=== PATIENT | male | born 1970 | race Caucasian/White ===

== ENCOUNTER → 2017-11-01 | Outpatient (REF) ==
--- NOTE | 2017-11-01 15:41 | Diagnostic Imaging Report ---
EXAMINATION: Right fingers. INDICATION: Injury. FINDINGS: An AP view of the hand and two views of the thumb were obtained. There are no prior studies available for comparison. There is no fracture, dislocation, or acute bony abnormality evident. There is a 9 mm bony excrescence along the lateral aspect of the head of the first metacarpal. This may be a sequela of prior trauma. This does not have the typical appearance of an osteochondroma. The soft tissues are unremarkable. There is no radiopaque foreign body identified. IMPRESSION: There is no evidence for an acute bony abnormality. Dictated by: Dictated on workstation # [id number]
== END | disposition home or self-care (01) ==
LOC: OCC 14:19
PROVIDERS: ATTEND Nurse Practitioner Family
CPT/HCPCS: 73140

== ENCOUNTER 2018-04-11 22:22 | Observation (INO) | payer OTHER ==
[~2018-04-11] VITALS: Ht 190.5 cm; Wt 94.3 kg
--- OUTSIDE RECORDS SUMMARY | 2018-04-11 22:27 | XMS REPORT ---
Author Author KEYSHA LUCAS [facility] Address [address] [place] [address] Care Team Providers Care Social Service Assistant Name Role Phone KEYSHA LUCAS Unavailable PROBLEMS Type Condition ICD9-CM Code [id number] Code Onset Dates Condition Status SNOMED Code Problem Type 2 diabetes mellitus without complications E11.9 Active 723811965 Problem intermediate current use of insulin Z79.4 Active 035924671 Problem Mixed hyperlipidemia E78.2 Active 750404100 Problem Essential hypertension I10 Active 17741539 Problem Encounter to establish care Z76.89 Active 215724714 ALLERGIES No Information ENCOUNTERS Encounter Location Date Diagnosis [facility] [id number] [place] [phone] Oct, Mixed hyperlipidemia E78.2 [facility] [id number] [place] [phone] Oct, [facility] [id number] [place] [phone] Oct, Type 2 diabetes mellitus without complications E11.9 ; Encounter to establish care Z76.89 ; intermediate accountant current use of insulin Z79.4 and Essential hypertension I10 IMMUNIZATIONS No Known Immunizations SOCIAL HISTORY Never Assessed REASON FOR VISIT med sent/ lab deferred PLAN OF CARE VITAL SIGNS MEDICATIONS Medication Instructions Dosage Frequency Start Date End Date Duration Status Lipitor 40 mg Orally Once a day 1 tablet 24h Oct, 30 day(s) Active RESULTS No Results PROCEDURES No Known procedures INSTRUCTIONS MEDICATIONS ADMINISTERED No Known Medications MEDICAL (GENERAL) HISTORY Type Description Date Medical History Type 2 Diabetes Surgical History Knee surgery Surgical History Shoulder surgery Surgical History Gallbladder removed Surgical History Foot has been operated on Hospitalization History Smashed thumb and went to 10/2017
--- OUTSIDE RECORDS SUMMARY | 2018-04-11 22:27 | XMS REPORT ---
Author Author KEYSHA LUCAS [facility] Address [address] [place] [address] Care Team Providers Care Burr Grinder Name Role Phone KEYSHA LUCAS Unavailable PROBLEMS Type Condition ICD9-CM Code [id number] Code Onset Dates Condition Status SNOMED Code Problem Type 2 diabetes mellitus without complications E11.9 Active 483049456 Problem FDC current use of insulin Z79.4 Active 199603358 Problem Mixed hyperlipidemia E78.2 Active 635906206 Problem Essential hypertension I10 Active 42181329 Problem Encounter to establish care Z76.89 Active 344392552 ALLERGIES No Information ENCOUNTERS Encounter Location Date Diagnosis [facility] [id number] [place] [phone] Oct, Mixed hyperlipidemia E78.2 [facility] [id number] [place] [phone] Oct, [facility] [id number] [place] [phone] Oct, Type 2 diabetes mellitus without complications E11.9 ; Encounter to establish care Z76.89 ; intermediate manager current use of insulin Z79.4 and Essential hypertension I10 IMMUNIZATIONS No Known Immunizations SOCIAL HISTORY Never Assessed REASON FOR VISIT PLAN OF CARE VITAL SIGNS MEDICATIONS Unknown Medications RESULTS No Results PROCEDURES No Known procedures INSTRUCTIONS MEDICATIONS ADMINISTERED No Known Medications MEDICAL (GENERAL) HISTORY Type Description Date Medical History Type 2 Diabetes Surgical History Knee surgery Surgical History Shoulder surgery Surgical History Gallbladder removed Surgical History Foot has been operated on Hospitalization History Smashed thumb and went to 10/2017
--- OUTSIDE RECORDS SUMMARY | 2018-04-11 22:27 | XMS REPORT | Continuity of Care Document ---
Author Author [facility] Address [address] [place] [address] Care Team Providers Care Steam And Power Superintendent Name Role Phone Tavon Pardo Unavailable Insurance Providers Payer Name Policy Number Subscriber Name Relationship Blue Cross [id number] GIORGIO NATHAN PATIENT/SELF Advance Directives Directive Response Recorded Date/Time Advance Directive Information: AD BROCHURE GIVEN TO PT 07/11/17 0:31am Problems Active Medical Problems Problem Onset Date Recorded Date Status Corneal abrasion, left Unknown 03/02/14 Active Sinus infection Unknown 03/13/17 Active Medications Current Home Medications Medication Dose Units Route Directions Days/Qty Instructions Start Date Cefadroxil Hydrate (Cefadroxil) 500 MG CAPSULE 500 MG BY MOUTH TWICE DAILY TAKE THIS MEDICATION UNTIL COMPLETELY GONE. Insulin Glargine 100 Units/Ml (Lantus) 100 UNIT/1 ML INJ 12 UNITS SUBCUTANEO DAILY Lisinopril (Prinivil) 10 MG TABLET 10 MG BY MOUTH DAILY Metformin (Glucophage) 500 MG TABLET 500 MG BY MOUTH TWICE DAILY Ondansetron (Zofran Odt) 4 MG TAB.RAPDIS 4 MG BY MOUTH EVERY 6 HOURS NEEDED PRN NAUSEA AND VOMITING Oxycodone 5 MG W/Actm 325 MG (Percocet 5/325) 1 EA UD.TAB 1 TAB BY MOUTH EVERY 4 HOURS NEEDED PRN PAIN DO NOT TAKE ACETAMINOPHEN WHILE TAKING THIS MEDICATION. Sitagliptin Phosphate (Januvia) 50 MG TAB 50 MG BY MOUTH DAILY Past Home Medications Medication Directions Ordered Status Amoxicillin* (Amoxil*) 500 Mg Cap Cap, 1 Cap By Mouth FOUR TIMES DAILY Discontinued Bisoprolol Fumarate/Hctz (Ziac 2.5-6.25 Mg Tablet) 1 Each Tablet Tablet, 1 Tab By Mouth DAILY Unknown Discontinued Naproxen Sodium (Aleve) 220 Mg Tab Tab, 220 Mg By Mouth TWICE DAILY NEEDED PRN PAIN Unknown Discontinued Sitagliptin Phosphate (Januvia) 100 Mg Tablet Tablet, 100 Mg By Mouth DAILY Unknown Discontinued Social History Problem Response Recorded Date Drug Use none 03/02/14 Alcohol Use none 03/02/14 Hospital Discharge Instructions No hospital discharge instructions. Plan of Care No plan of care. Functional Status No functional status results. Allergies, Adverse Reactions, Alerts Allergen Type Severity Reaction Status Last Updated No Known Allergies Allergy Unknown Active 03/13/17 Immunizations Name Date Given Type *Flu Shot: None Historical *Tetanus Shot: Up To Date Historical Vital Signs Vital Reading Collection Date/Time Result Blood Pressure 07/11/17 3:03pm 140/85 Patient Temperature 07/11/17 2:00pm 97.4 Respiratory Rate 07/11/17 3:03pm 16 Pulse Rate 07/11/17 3:03pm 60 Bedside Pulse Oximetry 07/11/17 3:03pm 100 Height 07/11/17 9:30am 193.04 cm Height 07/11/17 9:30am 6 ft 4 in Weight 07/11/17 9:30am 104.78 kg Weight 07/11/17 9:30am 231 lb Body Mass Index 07/11/17 9:30am 28.1 Results No known relevant diagnostic tests, laboratory data and/or discharge summary. Procedures No Known History of Procedures. Encounters Encounter Location Arrival/Admit Date Discharge/Depart Date Attending Provider Departed Surgical Day Care [facility] 07/11/17 0:31am 07/11/17 3 :20pm Michael Watts DO Registered Clinical [facility] 06/14/17 1:18am Tavon Pardo Encounter Diagnosis Onset Date Corneal abrasion, left Sinus infection
--- OUTSIDE RECORDS SUMMARY | 2018-04-11 22:27 | XMS REPORT | Continuity of Care Document ---
Author Author [facility] Address [address] [place] [address] Care Team Providers Care Asphalt Tile Floor Layer Name Role Phone Tavon Pardo Unavailable Insurance Providers Payer Name Policy Number Subscriber Name Relationship Blue Cross [id number] GIORGIO NATHAN PATIENT/SELF Advance Directives Directive Response Recorded Date/Time Advance Directive Information: AD BROCHURE GIVEN TO PT 01/28/17 0:14am Problems No problem information available. Medications Current Home Medications Medication Dose Units Route Directions Days/Qty Instructions Start Date Lisinopril 2.5 MG TABLET 2.5 MG PO DAILY Social History Problem Response Recorded Date Drug Use none 03/02/14 Alcohol Use none 03/02/14 Hospital Discharge Instructions No hospital discharge instructions. Plan of Care No plan of care. Functional Status No functional status results. Allergies, Adverse Reactions, Alerts Allergen Type Severity Reaction Status Last Updated No Known Allergies Allergy Unknown Active 05/05/13 Immunizations Name Date Given Type *Flu Shot: None Historical *Tetanus Shot: Less than 10 Years Historical Vital Signs Vital Reading Collection Date/Time Result Blood Pressure 01/12/17 1:44pm 133/99 Height 01/12/17 1:13pm 193.04 cm Height 01/12/17 1:13pm 6 ft 4 in Weight 01/12/17 1:44pm 102.058 kg Weight 01/12/17 1:44pm 225 lb 5 oz Body Mass Index 01/12/17 1:44pm 27.4 Results No known relevant diagnostic tests, laboratory data and/or discharge summary. Procedures No Known History of Procedures. Encounters Encounter Location Arrival/Admit Date Discharge/Depart Date Attending Provider Registered Clinical [facility] 01/24/17 12:27pm Sadiq Moreno Discharged Recurring [facility] 01/05/17 12:43pm 01/27/17 Tavon Pardo
--- OUTSIDE RECORDS SUMMARY | 2018-04-11 22:27 | XMS REPORT | Continuity of Care Document ---
Author Author [facility] Address [address] [place] [address] Care Team Providers Care Tongue And Groove Machine Operator Name Role Phone Tavon Pardo Unavailable Insurance Providers Payer Name Policy Number Subscriber Name Relationship Tab Puente [id number] GIORGIO NATHAN PATIENT/SELF Advance Directives Directive Response Recorded Date/Time Advance Directive Information: AD BROCHURE GIVEN TO PT 03/13/17 5:20pm Chief Complaint and Reason for Visit Reason for Visit SHORTNESS OF BREATH Problems Active Medical Problems Problem Onset Date Recorded Date Status Corneal abrasion, left Unknown 03/02/14 Active Sinus infection Unknown 03/13/17 Active Medications Current Home Medications Medication Dose Units Route Directions Days/Qty Instructions Start Date Amoxicillin* (Amoxil*) 500 MG CAP 1 CAP BY MOUTH FOUR TIMES DAILY 03/13/17 Bisoprolol Fumarate/Hctz (Ziac 2.5-6.25 MG Tablet) 1 EACH TABLET 1 TAB BY MOUTH DAILY Metformin (Glucophage) 500 MG TABLET 500 MG BY MOUTH TWICE DAILY Naproxen Sodium (Aleve) 220 MG TAB 220 MG BY MOUTH TWICE DAILY NEEDED PRN PAIN Sitagliptin Phosphate (Januvia) 100 MG TABLET 100 MG BY MOUTH DAILY Social History Problem Response Recorded Date Drug Use none 03/02/14 Alcohol Use none 03/02/14 Hospital Discharge Instructions No hospital discharge instructions. Plan of Care Discharge Date 03/13/17 Disposition HOME/SELF CARE Condition at Discharge Improved Instructions/Education Provided Sinusitis (ED) Prescriptions See Medications Section Referrals Tavon Pardo - Additional Instructions/Education The CT of the brain does show sinus disease in the ethmoid sinuses (which are deep in the head) and both the left and right maxillary sinuses. For this, take amoxicillin, 500mg, one tablet four times a day for the next five days. Rest and drink plenty of fluids. Take ibuprofen, 200mg, two tablets every 8 hours as needed. Follow up with Dr. Pardo in the next week. Please return to the emergency room for any concern, such as persistent nausea and vomiting, fever of 102.5 30 minutes after taking ibuprofen, headache not resolved, or for any other concern. Care Plan and Goals Problem: Headache Goal: Relief of headache. Plan: Refer to patient instructions provided. Functional Status No functional status results. Allergies, Adverse Reactions, Alerts Allergen Type Severity Reaction Status Last Updated No Known Allergies Allergy Unknown Active 03/13/17 Immunizations Name Date Given Type *Flu Shot: None Historical *Tetanus Shot: Less than 10 Years Historical Vital Signs Vital Reading Collection Date/Time Result Blood Pressure 03/13/17 5:44pm 142/98 Blood Pressure Source 03/13/17 7:44pm Brachial Patient Temperature 03/13/17 5:44pm 97.3 Temperature Source 03/13/17 5:44pm Oral Respiratory Rate 03/13/17 5:44pm 20 Pulse Rate 03/13/17 5:44pm 68 Bedside Pulse Oximetry 03/13/17 5:44pm 93 Height 03/13/17 5:44pm 6 ft 3 in Weight 03/13/17 5:44pm 220 lb Body Mass Index 03/13/17 5:44pm 27.5 Height 01/12/17 1:13pm 193.04 cm Weight 01/12/17 1:44pm 102.058 kg Results [address] [address] ED PHYSICIAN DOCUMENTATION Patient Name: GIORGIO NATHAN : 68 Unit #: [id number] Patient's Service Date: 03/13/17 ED Physician: Julian Payne MD Primary Physician: Char,Tavon M History of Present Illness General Chief Complaint altered mental Stated Complaint SHORTNESS OF BREATH Time Seen by Provider 1721 Source patient, roommate Exam Limitations clinical condition History of Present Illness Initial Comments Pt had relatively sudden onset of a SANTOS this afternoon, but unsure of exact time d/t pt's confusion. He has altered mental status and significant diaphroesis. He was sandor in by a roommate who works nights and woke up to find him in essentially his current condition. Pt is T2DM, but other history is unknown. Location generalized, head Context present at rest Quality achy Severity moderate Duration hours (2-4?) Timing one episode, worsening Modifying Factors nothing improves, nothing worsens Allergies Coded Allergies: No Known Allergies (03/13/17) (Sudhakar Saldana (ED)) History of Present Illness Home Medications Reported Medications Metformin (Glucophage) 500 MG BY MOUTH BID Bisoprolol Fumarate/Hctz (Ziac 2.5-6.25 MG Tablet) 1 TAB BY MOUTH DAILY Sitagliptin Phosphate (Januvia) 100 MG BY MOUTH DAILY Naproxen Sodium (Aleve) 220 MG BY MOUTH BID PRN PRN PAIN (Julian Payne MD) Review of Systems Review of Systems Was ROS Completed? Yes Limited By clinical condition Constitutional Reports diaphoresis, Denies fever Eyes Denies redness, Denies drainage ENT Denies throat pain Respiratory Denies cough, Denies short of breath, Denies wheezing Cardiovascular Denies chest pain Gastrointestinal Reports vomiting (per roommate), Denies diarrhea Musculoskeletal Denies neck pain Neurological Reports headache (Sudhakar Saldana (ED)) Past Medical History Past Medical History Medical History diabetes (Type 2) Social History Smoker Never smoker (Sudhakar Saldana (ED)) Physical Exam Physical Exam Exam Limitations clinical condition Nursing Assessment Reviewed Yes Initial Vital Signs Vital Signs Result Date Time Pulse Ox 93 03/13 174 B/P 142/98 03/13 174 Temp 97.3 03/13 174 Pulse 68 03/13 1744 Resp 20 03/13 174 Constitutional well developed, diaphoretic Eyes bilateral eyes PERRL, bilateral eyes other (nystagmus w/ lateral movement) Ear, Nose, Throat hearing grossly normal, normal TM (R), normal TM (L), nasal exam WNL, oral exam WNL Neck normal inspection, non-tender, supple, full range of motion Respiratory no respiratory distress, normal breath sounds Cardiovascular regular rate/rhythm Gastrointestinal soft, non tender Musculoskeletal normal strength Skin normal color, diaphoresis Neurological Pt is somewhat uncooperative w/ exam. Difficult to obtain complete exam. Psychiatric alert, appears disoriented (Sudhakar Saldana (ED)) Results Results Labs Laboratory Tests 03/13 03/13 03/13 03/13 03/13 1729 1729 1729 1742 1756 Chemistry Sodium (135 - 150 mmol/L) 140 Potassium (3.4 - 5.2 mmol/L) 3.7 Chloride (100 - 112 mmol/L) 103 Carbon Dioxide (18 - 30 mEq/L) 24 Anion Gap (8 - 16 mmol/L) 13 BUN (5 - 21 mg/dL) 21 Creatinine (0.60 - 1.30 mg/dL) 1.15 GFR Calculation (> 60 mL/Min) > 60 Glucose (70 - 99 mg/dL) 232 H Lactic Acid (0.4 - 2.0 mmol/L) 2.3 *H Calcium (8.6 - 10.5 mg/dL) 10.1 Total Bilirubin (0.0 - 1.2 mg/dL) 0.4 AST (6 - 37 U/L) 15.0 ALT (12 - 78 U/L) 23.0 Alkaline Phosphatase (50 - 136 U/L) 95.0 Troponin I (0.00 - 0.05 ng/mL) < 0.01 B-Natriuretic Peptide (<100 pg/mL) < 10 Total Protein (6.4 - 8.2 g/dL) 8.4 H Albumin (3.3 - 4.5 g/dL) 3.9 Albumin/Globulin Ratio (0.7 - 2.0) 0.9 Procalcitonin (0.0 - 0.10 ng/ml) < 0.05 L TSH (0.35 - 4.94 uIU/mL) 0.95 Coagulation PT (11.9 - 14.4 Seconds) 11.3 L INR (0.87 - 1.13) 0.83 L APTT (23.9 - 34.0 Seconds) 23.4 L D-Dimer (< 0.50 ug/ml) < 0.27 Hematology WBC (4.5 - 11.0 10^3/uL) 13.2 H RBC (4.70 - 6.00 10^6/uL) 5.08 Hgb (13.5 - 17.5 g/dl) 15.3 Hct (41 - 53 %) 45.0 MCV (80 - 100 fL) 88.4 MCH (25.0 - 34.0 pg) 30.0 MCHC (31.0 - 36.0 g/dL) 34.0 RDW (11.0 - 15.0 %) 13.8 Plt Count (130 - 400 10^3/uL) 332 MPV (7.0 - 11.0 fL) 8.0 Neutrophils (Manual) (50 - 65 %) 56 Neutrophils # (1.0 - 8.0 #) 7.4 Lymphocytes (Manual) (15 - 45 %) 37 Lymphocytes # (1.0 - 3.0 #) 4.9 H Monocytes (Manual) (0 - 10 %) 7 Monocytes # (0.0 - 1.0 #) 0.9 Eosinophils # (0.0 - 0.4 #) 0.0 Basophils # (0.0 - 0.2 #) 0.0 Toxicology Serum Alcohol (0 mg/dL) 0 03/13 Coagulation D-Dimer Cancelled Toxicology Urine Opiates Screen Pending Urine Methadone Screen Pending Ur Barbiturates Screen Pending Ur Phencyclidine Scrn Pending Ur Amphetamines Screen Pending U Benzodiazepines Scrn Pending U Cocaine Metab Screen Pending U Cannabinoids Screen Pending Urines Urine Color (Yellow) Yellow Urine Appearance (Clear) Clear Urine pH (4.5 - 7.5) 5.0 Ur Specific [place] (1.010 - .025) >=1.030 H Urine Protein (Negative) Negative Urine Ketones (Negative) Trace H Urine Blood (Negative) Negative Urine Nitrate (Negative) Negative Urine Bilirubin (Negative) Negative Urine Urobilinogen (<=1.0) 0.2 Ur Leukocyte Esterase (Negative) Negative Urine Glucose (Negative) 3+ H Microbiology Microbiology Date/Time Procedure - Status Source Growth 03/13 1759 Blood Culture - RECD Blood Progress Note Medications Medications Medications Given in the ED Sig/Timothy Start time Last Medication Dose Route Stop Time Status Admin Fentanyl Citrate See Dose PRN PRN 03/13 1832 CKD 03/13 (FENTANYL) Insts (1) IV 1835 Ketorolac 30 MG ONE ONE 03/13 1923 DC Tromethamine IV 03/13 1924 (TORADOL) Ondansetron HCl 4 MG ONE ONE 03/13 1832 DC 03/13 (ZOFRAN) IV 03/13 1833 183 Sodium Chloride 1,000 ML .STK-MED ONE 03/13 1824 DC 03/13 (0.9% Sodium IV 1826 Chloride) Dose Instructions: (1)Fentanyl Citrate (FENTANYL): 25-100 MCG Departure Departure Referrals Tavon Pardo (PCP) (Sudhakar Saldana (ED)) Departure Clinical Impression Primary Impression: Sinus infection Qualifiers: Sinusitis location: ethmoidal Chronicity: acute Recurrence: non- recurrent Qualified Code: J01.20 - Acute ethmoidal sinusitis, unspecified Time of Disposition 2022 Disposition HOME/SELF CARE Condition Improved Tobacco Education Tobacco Non-User Patient Instructions Sinusitis (ED) Additional Instructions The CT of the brain does show sinus disease in the ethmoid sinuses (which are deep in the head) and both the left and right maxillary sinuses. For this, take amoxicillin , 500mg, one tablet four times a day for the next five days. Rest and drink plenty of fluids. Take ibuprofen, 200mg, two tablets every 8 hours as needed. Follow up with Dr. Pardo in the next week. Please return to the emergency room for any concern, such as persistent nausea and vomiting, fever of 102.5 30 minutes after taking ibuprofen, headache not resolved, or for any other concern. Prescriptions Current Visit Scripts Amoxicillin* (Amoxil*) 1 CAP BY MOUTH QID #20 CAP Ref 1 (Julian Payne MD) Julian Payne MD Electronically Signed 03/13/172022 Procedures No Known History of Procedures. Encounters Encounter Location Arrival/Admit Date Discharge/Depart Date Attending Provider Departed Emergency [facility] 03/13/17 5:20pm 03/13/17 8:36pm Julian Payne MD Registered Clinical [facility] 01/24/17 12:27pm Sadiq Moreno Discharged Recurring [facility] 01/05/17 12:43pm 01/27/17 Tavon Pardo Encounter Diagnosis Sinusitis
--- OUTSIDE RECORDS SUMMARY | 2018-04-11 22:27 | XMS REPORT ---
Author Author KEYSHA LUCAS [facility] Address [address] [place] [address] Care Team Providers Care Senior Sustainability Consultant Name Role Phone KEYSHA LUCAS Unavailable PROBLEMS Type Condition ICD9-CM Code ZMD94-ES Code Onset Dates Condition Status SNOMED Code Problem Type 2 diabetes mellitus without complications E11.9 Active 465827635 Problem watermelon inspector current use of insulin Z79.4 Active 562297693 Problem Mixed hyperlipidemia E78.2 Active 162415761 Problem Essential hypertension I10 Active 69928696 Problem Encounter to establish care Z76.89 Active 550376492 ALLERGIES No Known Allergies ENCOUNTERS Encounter Location Date Diagnosis [facility] [address] [phone] Oct, Mixed hyperlipidemia E78.2 [facility] [address] [phone] Oct, [facility] [address] [address] Oct, Type 2 diabetes mellitus without complications E11.9 ; Encounter to establish care Z76.89 ; USP current use of insulin Z79.4 and Essential hypertension I10 IMMUNIZATIONS No Known Immunizations SOCIAL HISTORY Never Assessed REASON FOR VISIT Diabetes--MarlonKS PLAN OF CARE Activity Details Follow Up 3 Months, prn Reason:DM VITAL SIGNS Height 76 in 2017-11-15 Weight 226 lbs 2017-11-15 Temperature 97.9 degrees Fahrenheit 2017-11-15 Heart Rate 70 bpm 2017-11-15 Respiratory Rate 20 2017-11-15 BMI 27.51 kg/m2 2017-11-15 Blood pressure systolic 142 mmHg 2017-11-15 Blood pressure diastolic 100 mmHg 2017-11-15 MEDICATIONS Medication Instructions Dosage Frequency Start Date End Date Duration Status Lisinopril-Hydrochlorothiazide 20-25 MG Orally Once a day 1 tablet 24h Oct, 30 day(s) Active MetFORMIN HCl ER 750 MG Orally twice a day 1 tablet with evening meal 12h Oct, 30 day(s) Active Januvia 100 mg Orally Once a day 1 tablet 24h Oct, 30 day(s) Active Lantus 100 UNIT/ML Subcutaneous at bedtime inject 14 units Oct, 30 days Active RESULTS No Results PROCEDURES Procedure Date Ordered Result Body Site [facility] November 15, 2017 Hemoglobin Test Send Out 0 dollar November 15, 2017 [place], ROUTINE* November 15, 2017 GLYCATED HEMOGLOBIN TEST November 15, 2017 INSTRUCTIONS MEDICATIONS ADMINISTERED No Known Medications MEDICAL (GENERAL) HISTORY Type Description Date Medical History Type 2 Diabetes Surgical History Knee surgery Surgical History Shoulder surgery Surgical History Gallbladder removed Surgical History Foot has been operated on Hospitalization History Smashed thumb and went to 10/2017
--- OUTSIDE RECORDS SUMMARY | 2018-04-11 22:28 | XMS REPORT | Continuity of Care Document ---
Author Author [facility] Address Unknown Phone Unavailable Allergies Active Description Code Type Severity Reaction Onset Reported/Identified Relationship to Patient Clinical Status Yes NO NAME AVAILABLE 97775 DRUG N/ A N/A Yes No Known Drug Allergy NKDA N/ A N/A 07/27/2017 Medications Medication Packaging Start Date Stop Date Route Dosage Sig Lisinopril MG 01/28/2017 01/28/2017 2.5 DAILY Bisoprolol Fumarate/Hctz TAB 201603/13/2017 1 DAILY Metformin MG 03/13/2017 03/13/2017 500 BID Sitagliptin Phosphate MG 201603/13/2017 100 DAILY Amoxicillin* CAP 03/13/2017 03/13/2018 1 QID Naproxen Sodium MG 03/13/2017 03/13/2017 220 BID PRN Cefadroxil 500 MG Oral Capsule 07/26/2017 1 BID Acetaminophen 325 MG / Oxycodone Hydrochloride 5 MG Oral ablet [ Percocet] 07/10/2017 1 Ondansetron 4 MG Oral Tablet [Zofran] 07/10/2017 07/26/2017 1 Sitagliptin Phosphate MG 201607/11/2017 50 DAILY Oxycodone 5 MG W/Actm 325 MG TAB 07/11/2017 1 Q4H PRN Ondansetron MG 07/11/2017 07/11/2017 4 Q6H PRN Metformin MG 07/11/2017 07/11/2017 500 BID Lisinopril MG 07/11/2017 07/11/2017 10 DAILY Insulin Glargine 100 Units/Ml UNITS 07/11/2017 07/11/2017 12 DAILY Cefadroxil Hydrate MG 07/11/2017 07/11/2017 500 BID Problems Date Dx Coded Attending Type Code Diagnosis Diagnosed By 12/28/2016 Papo M79.671 Pain in right foot 01/26/2017 Sadiq Moreno M79.674 Pain in right toe(s) Sadiq Moreno Jennifer 01/30/2017 GeronimoOsmani Papo E11.9 Type 2 diabetes mellitus without complications GeronimoOsmani Sim 03/15/2017 Kerry CASTILLO, P Norman Barros J01.20 Acute ethmoidal sinusitis, unspecified Kerry CASTILLO, P Norman 03/15/2017 Kerry CASTILLO, P Norman Barros R06.02 Shortness of breath Kerry CASTILLO, P Norman 03/15/2017 Kerry CASTILLO, P Norman F R51 Headache Kerry CASTILLO, P Norman 06/16/2017 Geronimo Osmani Barros R60.0 Localized edema GeronimoOsmani anna 06/16/2017 Geronimo Osmani Barros S83.411A Sprain of medial collateral ligament of right knee, initial encounter GeronimoOsmani 06/16/2017 Geronimo Osmani Barros S86.811A Strain of other muscle(s) and tendon(s) at lower leg level, right leg, initial encounter GeronimoOsmani Sim 07/03/2017 Michael Watts M23.91 Unspecified internal derangement of right knee 07/13/2017 Michael Watts DO E11.9 Type 2 diabetes mellitus without complications Michael Watts DO 07/13/2017 Michael Watts DO I10 Essential (primary) hypertension Michael Watts DO 07/13/2017 Michael Watts DO M23.231 Derangement of other medial meniscus due to old tear or injury, right knee Michael Watts DO 07/13/2017 Michael Watts DO M65.861 Other synovitis and tenosynovitis, right lower leg Michael Watts DO 07/26/2017 Michael Watts Z48.89 Encounter for other specified surgical aftercare Procedures Code Description [place] [address] X-RAY EXAM OF FOOT 12/28/2016 8001 NO CHARGE 12/28/2016 16747 OFFICE/OUTPATIENT VISIT, [facility] 07/03/2017 36414 POSTOP FOLLOW-UP VISIT 07/26/2017 Results Test Result Range GLUCOSE, RANDOM - 02/09/16 11:59 GLUCOSE 198 mg/dL 64-110 GLUCOSE, RANDOM - 02/09/16 11:59 GLUCOSE 198 mg/dL 64-110 HEMOGLOBIN - 02/24/16 14:29 HEMOGLOBIN 15.3 g/dL 13.5-17.5 HEMOGLOBIN - 02/24/16 14:29 HEMOGLOBIN 15.3 g/dL 13.5-17.5 CBC WITH AUTO DIFFERENTIAL - 12/19/16 16:56 BASOPHILS RELATIVE PERCENT 0.5 % 0.0-2.5 EOSINOPHILS RELATIVE PERCENT 1.1 % <=5.0 HEMATOCRIT 46.8 % 38.8-50.0 HEMOGLOBIN 17.2 g/dL 13.5-17.5 LYMPHOCYTES RELATIVE PERCENT 18.8 % 22.0-49.0 MEAN CORPUSCULAR HEMOGLOBIN 30.9 pg 26.0-34.0 MEAN CORPUSCULAR HEMOGLOBIN CONC 36.8 g/dL 31.0-37.0 MEAN CORPUSCULAR VOLUME 84.2 fL 81.2-95.1 MONOCYTES RELATIVE PERCENT 6.3 % 2.0-9.0 NEUTROPHILS RELATIVE PERCENT 73.3 % 40.0-75.0 NUCLEATED RED BLOOD CELLS 0 /100 <=0 PLATELET COUNT 321 10E9/L 150-450 RED BLOOD CELL COUNT 5.56 10E12/L 4.32-5.72 RED CELL DISTRIBUTION WIDTH 11.9 % 11.8-15.6 [id number] 9.8 10E9/L 3.5-10.5 2376478 1.84 10E9/L 0.90-2.90 8144780 0.62 10E9/L 0.30-0.90 0650458 0.11 10E9/L 0.05-0.50 1767542 7.19 10E9/L 1.70-7.00 9327769 0.05 10E9/L 0.00-0.30 8018426 0 % TSH (REFLEX FREE T4 IF ABNORMAL) - 12/19/16 16:56 TSH 1.282 uIU/mL 0.400-4.000 COMPREHENSIVE METABOLIC PANEL - 12/19/16 16:56 ALBUMIN 4.7 g/dL 3.4-4.8 ALKALINE PHOSPHATASE 187 U/L 29-122 ALT 26 U/L 10-46 ANION GAP 10 AST 20 U/L 16-37 BILIRUBIN,TOTAL 0.4 mg/dL 0.2-1.3 BUN BLOOD 19 mg/dL 6-20 CALCIUM 10.2 mg/dL 8.7-10.5 CHLORIDE 91 mmol/L 99-111 CO2 25 mmol/L 20-36 CREATININE 1.29 mg/dL 0.60-1.20 EGFR > mL/min >59 GLUCOSE 689 mg/dL 74-106 POTASSIUM 5.0 mmol/L 3.6-4.9 PROTEIN TOTAL 8.5 g/dL 6.4-8.3 SODIUM 126 mmol/L 136-145 CBC WITH AUTO DIFFERENTIAL - 12/19/16 16:56 BASOPHILS RELATIVE PERCENT 0.5 % 0.0-2.5 EOSINOPHILS RELATIVE PERCENT 1.1 % <=5.0 HEMATOCRIT 46.8 % 38.8-50.0 HEMOGLOBIN 17.2 g/dL 13.5-17.5 LYMPHOCYTES RELATIVE PERCENT 18.8 % 22.0-49.0 MEAN CORPUSCULAR HEMOGLOBIN 30.9 pg 26.0-34.0 MEAN CORPUSCULAR HEMOGLOBIN CONC 36.8 g/dL 31.0-37.0 MEAN CORPUSCULAR VOLUME 84.2 fL 81.2-95.1 MONOCYTES RELATIVE PERCENT 6.3 % 2.0-9.0 NEUTROPHILS RELATIVE PERCENT 73.3 % 40.0-75.0 NUCLEATED RED BLOOD CELLS 0 /100 <=0 PLATELET COUNT 321 10E9/L 150-450 RED BLOOD CELL COUNT 5.56 10E12/L 4.32-5.72 RED CELL DISTRIBUTION WIDTH 11.9 % 11.8-15.6 6666025 9.8 10E9/L 3.5-10.5 6907155 1.84 10E9/L 0.90-2.90 7753545 0.62 10E9/L 0.30-0.90 9022912 0.11 10E9/L 0.05-0.50 6184446 7.19 10E9/L 1.70-7.00 1647514 0.05 10E9/L 0.00-0.30 2492624 0 % TSH (REFLEX FREE T4 IF ABNORMAL) - 12/19/16 16:56 TSH 1.282 uIU/mL 0.400-4.000 COMPREHENSIVE METABOLIC PANEL - 12/19/16 16:56 ALBUMIN 4.7 g/dL 3.4-4.8 ALKALINE PHOSPHATASE 187 U/L 29-122 ALT 26 U/L 10-46 ANION GAP 10 AST 20 U/L 16-37 BILIRUBIN,TOTAL 0.4 mg/dL 0.2-1.3 BUN BLOOD 19 mg/dL 6-20 CALCIUM 10.2 mg/dL 8.7-10.5 CHLORIDE 91 mmol/L 99-111 CO2 25 mmol/L 20-36 CREATININE 1.29 mg/dL 0.60-1.20 EGFR > mL/min >59 GLUCOSE 689 mg/dL 74-106 POTASSIUM 5.0 mmol/L 3.6-4.9 PROTEIN TOTAL 8.5 g/dL 6.4-8.3 SODIUM 126 mmol/L 136-145 CBC WITH AUTO DIFFERENTIAL - 01/16/17 15:11 BASOPHILS RELATIVE PERCENT 0.5 % 0.0-2.5 EOSINOPHILS RELATIVE PERCENT 1.8 % <=5.0 HEMATOCRIT 43.9 % 38.8-50.0 HEMOGLOBIN 15.0 g/dL 13.5-17.5 LYMPHOCYTES RELATIVE PERCENT 25.7 % 22.0-49.0 MEAN CORPUSCULAR HEMOGLOBIN 29.5 pg 26.0-34.0 MEAN CORPUSCULAR HEMOGLOBIN CONC 34.2 g/dL 31.0-37.0 MEAN CORPUSCULAR VOLUME 86.2 fL 81.2-95.1 MONOCYTES RELATIVE PERCENT 9.0 % 2.0-9.0 NEUTROPHILS RELATIVE PERCENT 63.0 % 40.0-75.0 PLATELET COUNT 296 10E9/L 150-450 RED BLOOD CELL COUNT 5.09 10E12/L 4.32-5.72 RED CELL DISTRIBUTION WIDTH 12.5 % 11.8-15.6 7202981 6.7 10E9/L 3.5-10.5 9020527 1.70 10E9/L 0.90-2.90 6022452 0.60 10E9/L 0.30-0.90 3907939 0.10 10E9/L 0.05-0.50 2389174 4.30 10E9/L 1.70-7.00 3535611 0.00 10E9/L 0.00-0.30 COMPREHENSIVE METABOLIC PANEL - 01/16/17 15:11 ALBUMIN 3.8 g/dL 3.5-5.0 ALKALINE PHOSPHATASE 91 U/L 46-116 ALT 31 U/L 21-72 ANION GAP 11 AST 14 U/L 17-59 BILIRUBIN,TOTAL 0.5 mg/dL 0.2-1.3 BUN BLOOD 26 mg/dL 9-20 CALCIUM 9.0 mg/dL 8.4-10.2 CHLORIDE 101 mmol/L 99-108 CO2 28 mmol/L 22-30 CREATININE 1.19 mg/dL 0.80-1.50 EGFR > mL/min >59 GLUCOSE 181 mg/dL 64-110 POTASSIUM 4.2 mmol/L 3.6-5.0 PROTEIN TOTAL 7.4 g/dL 6.0-8.0 SODIUM 140 mmol/L 135-145 HEMOGLOBIN A1C - 01/16/17 15:11 HEMOGLOBIN A1C 13.2 % <5.7 CBC WITH AUTO DIFFERENTIAL - 01/16/17 15:11 BASOPHILS RELATIVE PERCENT 0.5 % 0.0-2.5 EOSINOPHILS RELATIVE PERCENT 1.8 % <=5.0 HEMATOCRIT 43.9 % 38.8-50.0 HEMOGLOBIN 15.0 g/dL 13.5-17.5 LYMPHOCYTES RELATIVE PERCENT 25.7 % 22.0-49.0 MEAN CORPUSCULAR HEMOGLOBIN 29.5 pg 26.0-34.0 MEAN CORPUSCULAR HEMOGLOBIN CONC 34.2 g/dL 31.0-37.0 MEAN CORPUSCULAR VOLUME 86.2 fL 81.2-95.1 MONOCYTES RELATIVE PERCENT 9.0 % 2.0-9.0 NEUTROPHILS RELATIVE PERCENT 63.0 % 40.0-75.0 PLATELET COUNT 296 10E9/L 150-450 RED BLOOD CELL COUNT 5.09 10E12/L 4.32-5.72 RED CELL DISTRIBUTION WIDTH 12.5 % 11.8-15.6 9900521 6.7 10E9/L 3.5-10.5 7393440 1.70 10E9/L 0.90-2.90 1984441 0.60 10E9/L 0.30-0.90 5387231 0.10 10E9/L 0.05-0.50 1895368 4.30 10E9/L 1.70-7.00 0426498 0.00 10E9/L 0.00-0.30 COMPREHENSIVE METABOLIC PANEL - 01/16/17 15:11 ALBUMIN 3.8 g/dL 3.5-5.0 ALKALINE PHOSPHATASE 91 U/L 46-116 ALT 31 U/L 21-72 ANION GAP 11 AST 14 U/L 17-59 BILIRUBIN,TOTAL 0.5 mg/dL 0.2-1.3 BUN BLOOD 26 mg/dL 9-20 CALCIUM 9.0 mg/dL 8.4-10.2 CHLORIDE 101 mmol/L 99-108 CO2 28 mmol/L 22-30 CREATININE 1.19 mg/dL 0.80-1.50 EGFR > mL/min >59 GLUCOSE 181 mg/dL 64-110 POTASSIUM 4.2 mmol/L 3.6-5.0 PROTEIN TOTAL 7.4 g/dL 6.0-8.0 SODIUM 140 mmol/L 135-145 HEMOGLOBIN A1C - 01/16/17 15:11 HEMOGLOBIN A1C 13.2 % <5.7 FINGERSTICK BLOOD SUGAR POC - 03/13/17 17:25 FINGER STICK GL 240 mg/dl 70-99 CBC WITH MANUAL DIFFERENTIAL - 03/13/17 17:29 ABSOLUTE NEUTROPHIL COUNT 7.4 # 1.0-8.0 HEMOGLOBIN 15.3 g/dl 13.5-17.5 PLATELET COUNT 332 10 3/uL 130-400 WHITE BLOOD CELL COUNT 13.2 10 3/uL 4.5-11.0 LYMPHOCYTE# 4.9 # 1.0-3.0 MONOCYTE# 0.9 # 0.0-1.0 EOSINOPHIL# 0.0 # 0.0-0.4 BASOPHIL# 0.0 # 0.0-0.2 SEGS 56 % 50-65 LYMPHS 37 % 15-45 MONOS 7 % 0-10 RED BLOOD CELL 5.08 10 6/uL 4.70-6.00 HEMATOCRIT 45.0 % 41-53 MEAN CORPUSCULAR VOLUME 88.4 fL 80-100 MEAN CORPUSCULAR HEMOGLOBIN 30.0 pg 25.0-34.0 MEAN CELL HEMOGLOBIN CONC. 34.0 g/dL 31.0-36.0 RED CELL DISTRIBUTION WIDTH 13.8 % 11.0-15.0 MEAN PLATELET VOLUME 8.0 fL 7.0-11.0 PROTIME INR - 03/13/17 17:29 PROTHROMBINE SUZI 11.3 Seconds 11.9-14.4 PROTIME INR 0.83 0.87-1.13 APTT - 03/13/17 17:29 APTT 23.4 Seconds 23.9-34.0 Procalcitonin - 03/13/17 17:29 Procalcitonin < 0.05 ng/ml 0.0-0.10 NATRIURETIC PEPTIDE B-TYPE - 03/13/17 17:29 NATRIURETIC PEPTIDE B-TYPE < 10 pg/mL <100 COMP METABOLIC PROFILE - 03/13/17 17:29 ALBUMIN 3.9 g/dL 3.3-4.5 ALKALINE PHOSPHATASE 95.0 U/L 50-136 ANION GAP 13 mmol/L 8-16 BILIRUBIN TOTAL 0.4 mg/dL 0.0-1.2 GLUCOSE 232 mg/dL 70-99 BUN 21 mg/dL 5-21 CALCIUM 10.1 mg/dL 8.6-10.5 CHLORIDE 103 mmol/L 100-112 CARBON DIOXIDE 24 mEq/L 18-30 AST/GOT 15.0 U/L 6-37 ALT/GPT 23.0 U/L 12-78 POTASSIUM 3.7 mmol/L 3.4-5.2 SODIUM 140 mmol/L 135-150 TOTAL PROTEIN 8.4 g/dL 6.4-8.2 CREATININE 1.15 mg/dL 0.60-1.30 GFR ESTIMATE > 60 mL/Min > 60 AG RATIO 0.9 0.7-2.0 CARDIAC PROFILE (X3) - 03/13/17 17:29 TROPONIN-I < 0.01 ng/mL 0.00-0.05 THYROID STIM HORMONE - 03/13/17 17:29 THYROID STIM HORMONE 0.95 uIU/mL 0.35-4.94 D-DIMER - 03/13/17 17:29 D-DIMER < 0.27 ug/ml < 0.50 ALCOHOL - 03/13/17 17:42 ALCOHOL 0 mg/dL LACTIC ACID - 03/13/17 17:56 LACTIC ACID 2.3 mmol/L 0.4-2.0 BLOOD CULTURE - 03/13/17 17:59 BLOOD CULTURE Collection time: [f mctm] URINALYSIS CULT IF INDICATED - 03/13/17 19:49 APPEARANCE Clear Clear GLUCOSE 3+ Negative BILIRUBIN Negative Negative KETONE Trace Negative SPECIFIC GRAVIT >=1.030 1.010-.025 PH 5.0 4.5 - 7.5 PROTEIN Negative Negative UROBILINOGEN 0.2 <=1.0 NITRITE Negative Negative BLOOD Negative Negative LEUKOCYTES Negative Negative URINE CULTURE R Not Set COLOR Yellow Yellow DRUG SCREEN URINE - MEDICAL - 03/13/17 19:49 AMPHETAMINES/METHAMPHETAMINE Negative COCAINE METABOLITES Negative OPIATES Negative BARBITURATES Negative BENZODIAZEPINES Negative PHENCYCLIDINE Negative CANNABINOIDS Negative METHADONE Negative CBC WITH AUTO DIFFERENTIAL - 05/02/17 16:42 BASOPHILS RELATIVE PERCENT 0.9 % 0.0-2.5 EOSINOPHILS RELATIVE PERCENT 1.4 % <=5.0 HEMATOCRIT 47.5 % 38.8-50.0 HEMOGLOBIN 16.2 g/dL 13.5-17.5 LYMPHOCYTES RELATIVE PERCENT 24.6 % 22.0-49.0 MEAN CORPUSCULAR HEMOGLOBIN 29.9 pg 26.0-34.0 MEAN CORPUSCULAR HEMOGLOBIN CONC 34.1 g/dL 31.0-37.0 MEAN CORPUSCULAR VOLUME 87.6 fL 81.2-95.1 MONOCYTES RELATIVE PERCENT 9.2 % 2.0-9.0 NEUTROPHILS RELATIVE PERCENT 63.9 % 40.0-75.0 PLATELET COUNT 312 10E9/L 150-450 RED BLOOD CELL COUNT 5.42 10E12/L 4.32-5.72 RED CELL DISTRIBUTION WIDTH 12.6 % 11.8-15.6 6838611 9.3 10E9/L 3.5-10.5 7934978 2.30 10E9/L 0.90-2.90 6496474 0.90 10E9/L 0.30-0.90 0938437 0.10 10E9/L 0.05-0.50 7893534 5.90 10E9/L 1.70-7.00 6174846 0.10 10E9/L 0.00-0.30 HEMOGLOBIN A1C - 05/02/17 16:42 HEMOGLOBIN A1C 8.8 % <5.7 COMPREHENSIVE METABOLIC PANEL - 05/02/17 16:42 ALBUMIN 4.6 g/dL 3.4-4.8 ALKALINE PHOSPHATASE 107 U/L 29-122 ALT 26 U/L 10-46 ANION GAP 7 AST 17 U/L 16-37 BILIRUBIN,TOTAL 0.4 mg/dL 0.0-1.2 BUN BLOOD 18 mg/dL 6-20 CALCIUM 10.2 mg/dL 8.7-10.5 CHLORIDE 100 mmol/L 99-111 CO2 29 mmol/L 20-36 CREATININE 1.11 mg/dL 0.60-1.20 EGFR > mL/min >59 GLUCOSE 342 mg/dL 74-106 POTASSIUM 4.7 mmol/L 3.6-4.9 PROTEIN TOTAL 8.1 g/dL 6.4-8.3 SODIUM 136 mmol/L 136-145 CBC WITH AUTO DIFFERENTIAL - 05/02/17 16:42 BASOPHILS RELATIVE PERCENT 0.9 % 0.0-2.5 EOSINOPHILS RELATIVE PERCENT 1.4 % <=5.0 HEMATOCRIT 47.5 % 38.8-50.0 HEMOGLOBIN 16.2 g/dL 13.5-17.5 LYMPHOCYTES RELATIVE PERCENT 24.6 % 22.0-49.0 MEAN CORPUSCULAR HEMOGLOBIN 29.9 pg 26.0-34.0 MEAN CORPUSCULAR HEMOGLOBIN CONC 34.1 g/dL 31.0-37.0 MEAN CORPUSCULAR VOLUME 87.6 fL 81.2-95.1 MONOCYTES RELATIVE PERCENT 9.2 % 2.0-9.0 NEUTROPHILS RELATIVE PERCENT 63.9 % 40.0-75.0 PLATELET COUNT 312 10E9/L 150-450 RED BLOOD CELL COUNT 5.42 10E12/L 4.32-5.72 RED CELL DISTRIBUTION WIDTH 12.6 % 11.8-15.6 9627169 9.3 10E9/L 3.5-10.5 1660778 2.30 10E9/L 0.90-2.90 5722664 0.90 10E9/L 0.30-0.90 0349204 0.10 10E9/L 0.05-0.50 3141832 5.90 10E9/L 1.70-7.00 2394517 0.10 10E9/L 0.00-0.30 HEMOGLOBIN A1C - 05/02/17 16:42 HEMOGLOBIN A1C 8.8 % <5.7 COMPREHENSIVE METABOLIC PANEL - 05/02/17 16:42 ALBUMIN 4.6 g/dL 3.4-4.8 ALKALINE PHOSPHATASE 107 U/L 29-122 ALT 26 U/L 10-46 ANION GAP 7 AST 17 U/L 16-37 BILIRUBIN,TOTAL 0.4 mg/dL 0.0-1.2 BUN BLOOD 18 mg/dL 6-20 CALCIUM 10.2 mg/dL 8.7-10.5 CHLORIDE 100 mmol/L 99-111 CO2 29 mmol/L 20-36 CREATININE 1.11 mg/dL 0.60-1.20 EGFR > mL/min >59 GLUCOSE 342 mg/dL 74-106 POTASSIUM 4.7 mmol/L 3.6-4.9 PROTEIN TOTAL 8.1 g/dL 6.4-8.3 SODIUM 136 mmol/L 136-145 FINGERSTICK BLOOD SUGAR POC - 07/11/17 09:50 FINGER STICK GL 162 mg/dl 70-99 FINGERSTICK BLOOD SUGAR POC - 07/11/17 13:30 FINGER STICK GL 109 mg/dl 70-99 Encounters ACCT No. Visit Date/Time Discharge Status Pt. Type Provider Facility Loc./Unit Complaint [id number] 06/20/2017 13:14:44 06/20/2017 23:59:59 [id number]2017 11:05:07 06/09/2017 23:59:59 [facility] Outpatient OSMANI MELTON [facility] [id number] 05/02/2017 16:39:12 05/02/2017 23:59:59 [facility] Outpatient [facility] [id number] 05/02/2017 16:04:44 05/02/2017 23:59:59 [facility] Outpatient OSMANI MELTON [facility] [id number] 03/24/2017 11:12:12 03/24/2017 23:59:59 [facility] Outpatient OSMANI MELTON [facility] [id number] 02/24/2017 10:26:33 02/24/2017 23:59:59 [facility] Outpatient OSMANI MELTON [facility] [id number] 01/16/2017 15:01:38 01/16/2017 23:59:59 [facility] Outpatient [facility] [id number] 01/16/2017 14:04:23 01/16/2017 23:59:59 [facility] Outpatient OSMANI MELTON [facility] [id number] 01/05/2017 13:34:20 01/05/2017 23:59:59 [facility] Outpatient [facility] [id number] 12/28/2016 14:50:38 12/28/2016 23:59:59 [facility] Outpatient OSMANI MELTON [facility] [id number] 12/19/2016 16:52:23 12/19/2016 23:59:59 [facility] Outpatient [facility] [id number] 12/19/2016 15:53:20 12/19/2016 23:59:59 [facility] Outpatient OSMANI MELTON [facility] [id number] 02/24/2016 13:39:58 02/24/2016 23:59:59 C[facility] Outpatient [facility] [id number] 02/09/2016 11:20:33 02/09/2016 23:59:59 CLS Outpatient [facility] [id number] 02/09/2016 10:06:44 02/09/2016 23:59:59 CLS Outpatient [facility] [id number] 01/26/2016 16:10:23 01/26/2016 23:59:59 CLS Outpatient [facility] [id number] 03/13/2017 17:47:58 Document Registration [id number] 07/11/2017 00:31:00 07/11/2017 15:20:00 DIS Outpatient Michael Watts DO [facility] [id number] 06/14/2017 01:18:00 06/14/2017 23:59:59 CLS Outpatient Geronimo, Osmani Sim [facility] [id number] 03/13/2017 17:20:00 03/13/2017 20:36:00 DIS Emergency Julian Payne MD [facility] ED [id number] 01/28/2017 13:00:00 01/28/2017 23:59:59 CLS Preadmit Osmani Melton Sim [facility] [id number] 01/05/2017 12:43:00 01/27/2017 00:00:00 DIS R Osmani Melton Sim [facility] [id number] 01/24/2017 12:27:00 01/24/2017 23:59:59 CLS Outpatient Sadiq Moreno [facility] RAD [id number] 11/01/2017 14:19:00 11/01/2017 23:59:59 CLS Outpatient ANASTASIA MONTILLA [facility] OCC SMASHED RT THUMB [id number] 04/11/2018 22:23:00 ACT Emergency JACK CORRALES DO [facility] ER DIZZY [id number] 11/15/2017 15:20:00 11/15/2017 23:59:59 CLS Outpatient FORREST FALCON [facility] [id number] 06/20/2017 13:14:44 06/20/2017 23:59:59 CLS Outpatient OSMANI MELTON [facility] [id number] 06/09/2017 11:05:07 06/09/2017 23:59:59 CLS Outpatient OSMANI MELTON [facility] [id number] 05/02/2017 16:39:12 05/02/2017 23:59:59 CLS Outpatient [facility] [id number] 05/02/2017 16:04:44 05/02/2017 23:59:59 CLS Outpatient OSMANI MELTON [facility] [id number] 03/24/2017 11:12:12 03/24/2017 23:59:59 CLS Outpatient OSMANI MELTON [facility] [id number] 02/24/2017 10:26:33 02/24/2017 23:59:59 CLS Outpatient OSMANI MELTON [facility] [id number] 01/16/2017 15:01:38 01/16/2017 23:59:59 CLS Outpatient [facility] [id number] 01/16/2017 14:04:23 01/16/2017 23:59:59 CLS Outpatient OSMANI MELTON [facility] [id number] 01/05/2017 13:34:20 01/05/2017 23:59:59 CLS Outpatient [facility] [id number] 12/28/2016 14:50:38 12/28/2016 23:59:59 CLS Outpatient GERONIMOOSMANI HUERTA [facility] [id number] 12/19/2016 16:52:23 12/19/2016 23:59:59 CLS Outpatient [facility] [id number] 12/19/2016 15:53:20 12/19/2016 23:59:59 CLS Outpatient GERONIMOOSMANI HUERTA [facility] [id number] 02/24/2016 13:39:58 02/24/2016 23:59:59 [facility] [id number] 02/09/2016 11:20:33 02/09/2016 23:59:59 [facility] [id number] 02/09/2016 10:06:44 02/09/2016 23:59:59 CLS Outpatient [facility] [id number] 01/26/2016 16:10:23 01/26/2016 23:59:59 CLS Outpatient [facility] [id number] 03/13/2017 17:47:58 Document Registration [id number] 07/26/2017 11:20:00 07/26/2017 23:59:59 CLS Outpatient Michael Watts [facility] [id number] 07/03/2017 15:00:00 07/03/2017 23:59:59 CLS Outpatient Michael Watts [facility] [id number] 12/28/2016 13:28:00 12/28/2016 23:59:59 CLS Outpatient Ranjit Up [facility] [id number] 07/10/2017 23:12:00 Document Registration [id number] 12/28/2016 13:28:00 Document Registration
[2018-04-11 22:40] VITALS: BP_SYST 88; BP_SYST 89; BP_SYST 97; BP_DIAS 55; BP_DIAS 61; BP_DIAS 63
[2018-04-11 22:40] LABS: BASOPHILS % (AUTO) 0 % (0-10); EOSINOPHILS % (AUTO) 0 % (0-10); HEMATOCRIT 43 % (40-54); HEMOGLOBIN 15.5 G/DL (13.3-17.7); LYMPHOCYTES # (AUTO) 1.8 X 10^3 (1.0-4.0); LYMPHOCYTES % (AUTO) 15 % (12-44); MEAN CORPUSCULAR HEMOGLOBIN 31 PG (25-34); MEAN CORPUSCULAR HGB CONC 36 G/DL (32-36); MEAN CORPUSCULAR VOLUME 86 FL (80-99); MEAN PLATELET VOLUME 10.2 FL (7.4-10.4); MONOCYTES # (AUTO) 0.7 X 10^3 (0.0-1.0); MONOCYTES % (AUTO) 6 % (0-12); NEUTROPHILS # (AUTO) 8.8 X 10^3 (1.8-7.8); NEUTROPHILS % (AUTO) 78 % (42-75); PLATELET COUNT 349 10^3/uL (130-400); RED BLOOD COUNT 4.98 10^6/uL (4.35-5.85); RED CELL DISTRIBUTION WIDTH 12.9 % (10.0-14.5); WHITE BLOOD COUNT 11.3 10^3/uL (4.3-11.0)
[2018-04-11 22:56] LABS: PROTHROMBIN TIME PATIENT 13.4 SEC (12.2-14.7)
[2018-04-11] MEDS ORDERED: ONDANSETRON 4 MG/2 ML (SDV) Z0FRAN ONE (22:56)
[2018-04-11] MEDS ORDERED: NS IV 1000 ML 1,000 ML ONE (22:56)
[2018-04-11 23:07] LABS: ALANINE AMINOTRANSFERASE 20 U/L (0-55); ALBUMIN 4.2 GM/DL (3.2-4.5); ALKALINE PHOSPHATASE 86 U/L (40-136); AMYLASE 43 U/L (25-125); BILIRUBIN,TOTAL 1.2 MG/DL (0.1-1.0); BUN/CREATININE RATIO 10; CALCIUM 9.1 MG/DL (8.5-10.1); CARBON DIOXIDE 17 MMOL/L (21-32); CHLORIDE 99 MMOL/L (98-107); CREATINE KINASE 93 U/L (30-200); CREATININE SERUM 2.75 MG/DL (0.60-1.30); GFR ESTIMATED 25; GLUCOSE 252 MG/DL (70-105); LIPASE 26 U/L (8-78); MAGNESIUM 2.1 MG/DL (1.8-2.4); POTASSIUM 3.9 MMOL/L (3.6-5.0); SODIUM 134 MMOL/L (135-145); TOTAL PROTEIN 7.3 GM/DL (6.4-8.2)
[2018-04-11] MEDS ORDERED: NS IV 1000 ML 1,000 ML IV ONE ×2 (23:09→23:37)
[2018-04-11] MEDS ORDERED: ONDANSETRON 4 MG/2 ML (SDV) Z0FRAN IVP ONE (23:15)
[2018-04-11 23:27] LABS: CREATINE KINASE MB 0.8 NG/ML (<6.6); TSH (THYROID ANALYZER) 1.14 UIU/ML (0.35-4.94)
[2018-04-12] VITALS (9 sets, daily range): BP systolic 109–138; BP diastolic 58–84
[2018-04-12 00:02] LABS: AMPHETAMINE SCREEN, URINE NEGATIVE (NEGATIVE); BARBITURATE SCREEN URINE NEGATIVE (NEGATIVE); BENZODIAZEPINES SCREEN URINE NEGATIVE (NEGATIVE); CANNABINOID SCREEN, URINE NEGATIVE (NEGATIVE); COCAINE SCREEN URINE NEGATIVE (NEGATIVE); METHADONE STAT NEGATIVE (NEGATIVE); METHAMPHETAMINE SCREEN URINE S NEGATIVE (NEGATIVE); OPIATE SCREEN URINE NEGATIVE (NEGATIVE); OXYCODONE STAT NEGATIVE (NEGATIVE); PROPOXYPHENE STAT NEGATIVE (NEGATIVE); TRICYCLIC ANTIDEPRESSANTS SCRE NEGATIVE (NEGATIVE)
[2018-04-12 00:05] LABS: BILIRUBIN,URINE NEGATIVE (NEGATIVE); GLUCOSE, URINE (UA) 4+ (NEGATIVE); KETONES,URINE NEGATIVE (NEGATIVE); LEUKOCYTE ESTERASE ,URINE 1+ (NEGATIVE); NITRITE,URINE NEGATIVE (NEGATIVE); PH,URINE 5 (5-9); PROTEIN,URINE 1+ (NEGATIVE); UROBILINOGEN,URINE NORMAL (NORMAL)
[2018-04-12 00:06] LABS: CLARITY,URINE SLIGHTLY CLOUDY; COLOR,URINE YELLOW
[2018-04-12 00:07] LABS: BACTERIA,URINE TRACE /HPF; HYALINE CASTS, URINE 25-50 /LPF; SQUAMOUS EPITHELIAL CELL,UR RARE /HPF
--- OUTSIDE RECORDS SUMMARY | 2018-04-12 00:49 | XMS REPORT | Continuity of Care Document ---
Author Author [facility] Address Unknown Phone Unavailable Allergies Active Description Code Type Severity Reaction Onset Reported/Identified Relationship to Patient Clinical Status Yes NO NAME AVAILABLE 94172 DRUG N/ A N/A Yes No Known [...] Procedures Code Description [place] [address] X-RAY EXAM OF FOOT 12/28/2016 8001 NO CHARGE 12/28/2016 51855 OFFICE/OUTPATIENT VISIT, [facility] 07/03/2017 73173 POSTOP FOLLOW-UP VISIT 07/26/2017 Results Test Result [...] RED CELL DISTRIBUTION WIDTH 11.9 % 11.8-15.6 2093485 9.8 10E9/L 3.5-10.5 1323385 1.84 10E9/L 0.90-2.90 1459244 0.62 10E9/L 0.30-0.90 5702295 0.11 10E9/L 0.05-0.50 4752959 7.19 10E9/L 1.70-7.00 4858081 0.05 10E9/L 0.00-0.30 7112000 0 % TSH (REFLEX FREE T4 IF [...] RED CELL DISTRIBUTION WIDTH 11.9 % 11.8-15.6 7623189 9.8 10E9/L 3.5-10.5 0388309 1.84 10E9/L 0.90-2.90 0542708 0.62 10E9/L 0.30-0.90 3357752 0.11 10E9/L 0.05-0.50 6535887 7.19 10E9/L 1.70-7.00 6335360 0.05 10E9/L 0.00-0.30 4756767 0 % TSH (REFLEX FREE T4 IF [...] RED CELL DISTRIBUTION WIDTH 12.5 % 11.8-15.6 3944974 6.7 10E9/L 3.5-10.5 7149171 1.70 10E9/L 0.90-2.90 5075345 0.60 10E9/L 0.30-0.90 4474684 0.10 10E9/L 0.05-0.50 1106120 4.30 10E9/L 1.70-7.00 3834960 0.00 10E9/L 0.00-0.30 COMPREHENSIVE METABOLIC PANEL - [...] RED CELL DISTRIBUTION WIDTH 12.5 % 11.8-15.6 5224389 6.7 10E9/L 3.5-10.5 1504938 1.70 10E9/L 0.90-2.90 7927916 0.60 10E9/L 0.30-0.90 6938676 0.10 10E9/L 0.05-0.50 8820110 4.30 10E9/L 1.70-7.00 7880470 0.00 10E9/L 0.00-0.30 COMPREHENSIVE METABOLIC PANEL - [...] RED CELL DISTRIBUTION WIDTH 12.6 % 11.8-15.6 3095250 9.3 10E9/L 3.5-10.5 9913955 2.30 10E9/L 0.90-2.90 3008149 0.90 10E9/L 0.30-0.90 6134786 0.10 10E9/L 0.05-0.50 0908694 5.90 10E9/L 1.70-7.00 0677187 0.10 10E9/L 0.00-0.30 HEMOGLOBIN A1C - 05/02/17 [...] RED CELL DISTRIBUTION WIDTH 12.6 % 11.8-15.6 0867105 9.3 10E9/L 3.5-10.5 1649249 2.30 10E9/L 0.90-2.90 9729656 0.90 10E9/L 0.30-0.90 7443425 0.10 10E9/L 0.05-0.50 2062263 5.90 10E9/L 1.70-7.00 6354828 0.10 10E9/L 0.00-0.30 HEMOGLOBIN A1C - 05/02/17 [...] Status Pt. Type Provider Facility Loc./Unit Complaint [id number] 06/20/2017 13:14:44 06/20/2017 23:59:59 [id number] 06/09/2017 11:05:07 06/09/2017 23:59:59 [facility] Outpatient OSMANI MELTON [facility] [id number] 05/02/2017 16:39:12 05/02/2017 23:59:59 [facility] Outpatient [facility] [id number] 05/02/2017 16:04:44 05/02/2017 23:59:59 [facility] Outpatient OSMANI MELTON [facility] [id number] 03/24/2017 11:12:12 03/24/2017 23:59:59 [facility] Outpatient OSMANI MELTON [facility] [id number] 02/24/2017 10:26:33 02/24/2017 23:59:59 [facility] Outpatient OSMANI MELTON [facility] [id number] 01/16/2017 15:01:38 01/16/2017 23:59:59 [facility] Outpatient [facility] [id number] 01/16/2017 14:04:23 01/16/2017 23:59:59 [facility] Outpatient OSMANI MELTON [facility] [id number] 01/05/2017 13:34:20 01/05/2017 23:59:59 [facility] Outpatient [facility] [id number] 12/28/2016 14:50:38 12/28/2016 23:59:59 [facility] Outpatient OSMANI MELTON [facility] [id number] 12/19/2016 16:52:23 12/19/2016 23:59:59 [facility] Outpatient [facility] [id number] 12/19/2016 15:53:20 12/19/2016 23:59:59 [facility] Outpatient OSMANI MELTON [facility] [id number] 02/24/2016 13:39:58 02/24/2016 23:59:59 [facility] Outpatient [facility] [id number] 02/09/2016 11:20:33 02/09/2016 23:59:59 [facility] Outpatient [facility] [id number] 02/09/2016 10:06:44 02/09/2016 23:59:59 [facility] Outpatient [facility] [id number] 01/26/2016 16:10:23 01/26/2016 23:59:59 [facility] Outpatient [facility] [id number] 03/13/2017 17:47:58 Document Registration [id number] 07/11/2017 00:31:00 07/11/2017 15:20:00 DIS Outpatient Michael Watts DO [facility] [id number] 06/14/2017 01:18:00 06/14/2017 23:59:59 [facility]LS Outpatient Osmani Melton [facility] [id number] 03/13/2017 17:20:00 03/13/2017 20:36:00 DIS Emergency Kerry CASTILLO, Julian [facility] ED [id number] 01/28/2017 13:00:00 01/28/2017 23:59:59 CLS Preadmit Geronimo Osmani Sim [facility] [id number] 01/05/2017 12:43:00 01/27/2017 00:00:00 DIS R Geronimo Osmani Sim [facility] [id number] 01/24/2017 12:27:00 01/24/2017 23:59:59 CLS Outpatient Sadiq Moreno [facility] RAD [id number] 11/01/2017 14:19:00 11/01/2017 23:59:59 CLS Outpatient ANASTASIA MONTILLA [facility] OCC SMASHED RT THUMB [id number] 04/11/2018 23:35:00 ACT Inpatient NAE CASTILLO, ANUP Quintanilla [facility] 4TH SYNCOPAL EPISODE;DEHYDRATION;RENAL FAILURE; [id number] 11/15/2017 15:20:00 11/15/2017 23:59:59 CLS Outpatient [facility] [id number] 06/20/2017 13:14:44 06/20/2017 23:59:59 [facility] Outpatient OSMANI MELTON [facility] [id number] 06/09/2017 11:05:07 06/09/2017 23:59:59 CLS Outpatient OSMANI MELTON [facility] [id number] 05/02/2017 16:39:12 05/02/2017 23:59:59 CLS Outpatient [facility] [id number] 05/02/2017 16:04:44 05/02/2017 23:59:59 [facility] Outpatient OSMANI MELTON [facility] [id number] 03/24/2017 11:12:12 03/24/2017 23:59:59 [facility] Outpatient OSMANI MELTON [facility] [id number] 02/24/2017 10:26:33 02/24/2017 23:59:59 [facility] Outpatient OSMANI MELTON [facility] [id number] 01/16/2017 15:01:38 01/16/2017 23:59:59 [facility] Outpatient [facility] [id number] 01/16/2017 14:04:23 01/16/2017 23:59:59 [facility] Outpatient OSMANI MELTON [facility] [id number] 01/05/2017 13:34:20 01/05/2017 23:59:59 CLS Outpatient [facility] [id number] 12/28/2016 14:50:38 12/28/2016 23:59:59 [facility] Outpatient OSMANI MELTON [facility] [id number] 12/19/2016 16:52:23 12/19/2016 23:59:59 [facility] Outpatient [facility] [id number] 12/19/2016 15:53:20 12/19/2016 23:59:59 [facility] Outpatient GERONIMOOSMANI HUERTA [facility] [id number] 02/24/2016 13:39:58 02/24/2016 23:59:59 CLS Outpatient [facility] [id number] 02/09/2016 11:20:33 02/09/2016 23:59:59 CLS Outpatient [facility] [id number] 02/09/2016 10:06:44 02/09/2016 23:59:59 CLS Outpatient [facility] [id number] 01/26/2016 16:10:23 01/26/2016 23:59:59 CLS Outpatient [facility] [id number] 03/13/2017 17:47:58 Document Registration [id number] 07/26/2017 11:20:00 07/26/2017 23:59:59 CLS Outpatient Michael Watts [facility] [id number] 07/03/2017 15:00:00 07/03/2017 23:59:59 CLS Outpatient Michael Watts [facility] [id number] 12/28/2016 13:28:00 12/28/2016 23:59:59 CLS Out[address] Ranjit Up [facility]inic [id number] 07/10/2017 23:12:00 Document Registration [id number] 12/28/2016 13:28:00 Document Registration
[2018-04-12] MEDS ORDERED: ONDANSETRON 4 MG/2 ML (SDV) Z0FRAN IV PRN (03:00)
[2018-04-12] MEDS: NS IV 1000 ML 1,000 ML IV SCH ×4 (03:37→15:44)
[2018-04-12 05:59] LABS: BASOPHILS % (AUTO) 0 % (0-10); EOSINOPHILS # (AUTO) 0.1 10^3/uL (0.0-0.3); EOSINOPHILS % (AUTO) 1 % (0-10); HEMATOCRIT 40 % (40-54); HEMOGLOBIN 13.9 G/DL (13.3-17.7); LYMPHOCYTES # (AUTO) 1.8 X 10^3 (1.0-4.0); LYMPHOCYTES % (AUTO) 19 % (12-44); MEAN CORPUSCULAR HEMOGLOBIN 31 PG (25-34); MEAN CORPUSCULAR HGB CONC 35 G/DL (32-36); MEAN CORPUSCULAR VOLUME 87 FL (80-99); MEAN PLATELET VOLUME 10.3 FL (7.4-10.4); MONOCYTES # (AUTO) 0.8 X 10^3 (0.0-1.0); MONOCYTES % (AUTO) 9 % (0-12); NEUTROPHILS # (AUTO) 6.5 X 10^3 (1.8-7.8); NEUTROPHILS % (AUTO) 71 % (42-75); PLATELET COUNT 272 10^3/uL (130-400); RED BLOOD COUNT 4.54 10^6/uL (4.35-5.85); RED CELL DISTRIBUTION WIDTH 12.9 % (10.0-14.5); WHITE BLOOD COUNT 9.1 10^3/uL (4.3-11.0)
[2018-04-12 07:08] LABS: ALBUMIN 3.7 GM/DL (3.2-4.5); BILIRUBIN,TOTAL 0.8 MG/DL (0.1-1.0); CALCIUM 8.5 MG/DL (8.5-10.1); CREATININE SERUM 1.77 MG/DL (0.60-1.30); POTASSIUM 3.9 MMOL/L (3.6-5.0); TOTAL PROTEIN 6.3 GM/DL (6.4-8.2)
--- NOTE | 2018-04-12 08:09 | ED Syncope ---
General Chief Complaint: Dizziness/Syncope Stated Complaint: SYNCOPAL EPISODE;DEHYDRATION;RENAL FAILURE; Nursing Triage Note: PT TO ROOM #8 [facility]IA [facility] FROM WORK. A&OX4. EMS REPORTS CO WORKERS SEEING PATIENT "PASS OUT." PT DENIES DENIES SYNCOPE EPISODE OR FEELING LH/DIZZY. 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 PT REPORTS HE HAS BEEN DIABETIC FOR 1 YEAR AND STOPPED TAKING HIS DIABETIC MEDICATION 2 WKS PRIOR DT "MAKING [HIM] FEEL NAUSEOUS. PT WAS SEEN AT [facility] ON 04/07/18 AND RESTARTED DIABETIC MEDICATIONS DT BS BEING >500. UPON ARRIVAL TO ED PT NOTED TO BE DIAPHORETIC AND WARM TO TOUCH. PT REPORTS NAUSEA AND DENIES VOMITING. PT DENIES ANY PAIN OR INJURY. Source of Information: Patient (SOMEWHAT LIMITED/DIFFICULT HISTORIAN--VERY RELUCTANT TO ANSWER ANY QUESTIONS AND GIVES ONLY THE VERY MINIMAL AMOUNT OF INFORMATION. ), EMS History of Present Illness Date Seen by Provider: Apr 11, 2018 Time Seen by Provider: 22:20 Initial Comments PT ARRIVES VIA EMS FROM WORK AT [employer] ( [employer]) - -VERY HOT ENVIRONMENT, BUT TEMP OUTSIDE IS ONLY 65-70 DEGREES EMS STATE CO-WORKERS REPORT THAT PT HAD SYNCOPAL EPISODE, BUT PT DENIES THAT HE PASSED OUT OR BEING DIZZY/LIGHTHEADED. EMS STATE THAT CO-WORKERS SAW HIM TENSE UP AND THEY CAUGHT HIM BEFORE HE STRUCK ANYTHING --NO INJURY PT WAS ABLE TO MEET EMS AT THE DOOR-HAD WALKED TO THE DOOR EMS STATE THAT BLOOD PRESSURE WAS IN THE 80'S SYSTOLIC AND PT HAS BEEN PROFUSELY DIAPHORETIC. ACCUCHECK WAS 221 FOR EMS PT IS DIABETIC--WAS DX OVER 1 1/2 YEARS AGO-IS SUPPOSED TO BE TAKING INSULIN, METFORMIN AND JANUVIA--PT REPORTED TO EMS THAT HE ONLY TOOK THE MEDICATIONS WHEN HIS BLOOD SUGAR HITS 500--PT STATES HE HAD NOT TAKEN ANY FOR AT LEAST 2 WEEKS, BUT HAS TAKEN IT THE LAST 4 DAYS PT ADMITS TO NOT EATING OR DRINKING MUCH AT ALL. HAS NOT EATEN SINCE 1999 YESTERDAY BEFORE HE WENT TO WORK. STATES HE HAD 44 OZ OF TEA ON HIS WAY TO WORK , OTHERWISE HAS NOT HAD ANYTHING ELSE TO DRINK SINCE LAST PM. PT STATES IT IS "BECAUSE I'VE BEEN WORKING" PT CLAIMS HE IS VOIDING A NORMAL AMOUNT, BUT CANNOT STATE WHEN HE LAST URINATED. PT WAS NOT INCONTINENT. PT DENIES HEADACHE DENIES DIZZINESS DENIES VISION CHANGES DENIES CHEST PAIN OR PALPITATIONS DENIES SHORTNESS OF BREATH. PT HAS SLIGHT NAUSEA--STATES HE HAS IT BECAUSE OF THE MEDICINE. NO VOMITING OR DIARRHEA. PT STATES HE IS ON LISINOPRIL FOR HTN, AND CLAIMS HE TAKES THAT EVERY DAY AND HAS NOT MISSED DOSES NO HISTORY OF SIMILAR EPISODES NO PRIOR VISITS HERE PCP: [facility] [facility] Allergies and Home Medications Allergies Coded Allergies: No Known Drug Allergies (Unverified , 04/12/18) Patient Home Medication List Home Medication List Reviewed: Yes Review of Systems Constitutional: see HPI, diaphoresis, weakness EENTM: no symptoms reported Respiratory: No short of breath Cardiovascular: see HPI; No chest pain, No edema, No palpitations; syncope Gastrointestinal: see HPI; No abdominal pain, No constipation, No diarrhea; nausea Genitourinary: no symptoms reported Musculoskeletal: no symptoms reported Skin: no symptoms reported Psychiatric/Neurological: See HPI; Denies Headache, Denies Numbness, Denies Paresthesia, Denies Seizure, Denies Weakness Past Dhyawjg-Ftvqcx-Jvlxva Hx Patient Social History Alcohol Use: Denies Use Recreational Drug Use: No Smoking Status: Never a Smoker 2nd Hand Smoke Exposure: No Recent Foreign Travel: No Contact w/Someone Who Travel: No Recent Infectious Disease Expo: No Recent Hopitalizations: No Physical Abuse: No Sexual Abuse: No Seasonal Allergies Seasonal Allergies: No Past Medical History Surgeries: Yes (RIGHT KNEE SCOPE; LEFT SHOULDER SURGERY; RIGHT FOOT--BONE SCRAPED A FEW TIMES FOR CALCIUM BUILDUP. ) Gallbladder, Orthopedic, Tonsillectomy Respiratory: No Cardiac: Yes Hypertension Neurological: No Genitourinary: No Gastrointestinal: No Musculoskeletal: Yes (ORTHOPEDIC SURGERIES) Endocrine: Yes Diabetes, Insulin dep Are Your Blood Sugars Over 250: Yes HEENT: No Cancer: No Psychosocial: No Integumentary: No Blood Disorders: No Physical Exam Vital Signs Vital Signs - First Documented 04/11/18 22:25 Temp 96.9 Pulse 80 Resp 20 B/P (MAP) 82/65 (71) Pulse Ox 100 O2 Delivery Room Air Capillary Refill : Less Than 3 Seconds Height, Weight, BMI Height: 6'3.00" Weight: 208lbs. 0.0oz. 94.271057di; 26.0 BMI Method:Stated General Appearance: No Apparent Distress, WD/WN, Other (PALE, HAIR COMPLETELY SATURATED, SKIN VERY MOIST) HEENT: PERRL/EOMI Neck: Full Range of Motion, Normal Inspection, Non Tender, Supple; No Carotid Bruit, No JVD Cardiovascular: Regular Rate, Rhythm, No Edema, No JVD, No Murmur, Normal Peripheral Pulses Respiratory: Normal Breath Sounds, No Accessory Muscle Use, No Respiratory Distress Gastrointestinal: Normal Bowel Sounds, No Organomegaly, No Pulsatile Mass, Non Tender, Soft Back: No CVA Tenderness Extremities: Normal Range of Motion, Non Tender, No Calf Tenderness, No Pedal Edema Neurologic/Psychiatric: Alert, Oriented x3, No Motor/Sensory Deficits, fisher diver net II- XII Norm as Tested Cranial Nerves: Normal Speech, PERRL Motor/Sensory: No Motor Deficit, No Sensory Deficit, No Pronator Drift, Negative Babinski's Sign Skin: Cool, Damp, Pallor Progress/Results/Core Measures Results/Orders Lab Results Laboratory Tests Test 04/11/18 22:31 04/11/18 22:32 Range/Units Glucometer 249 H 70-110 MG/DL White Blood Count 11.3 H 4.3-11.0 10^3/uL Red Blood Count 4.98 4.35-5.85 10^6/uL Hemoglobin 15.5 13.3-17.7 G/DL Hematocrit 43 40-54 % Mean Corpuscular Volume 86 80-99 FL Mean Corpuscular Hemoglobin 31 25-34 PG Mean Corpuscular Hemoglobin Concent 36 32-36 G/DL Red Cell Distribution Width 12.9 10.0-14.5 % Platelet Count 349 130-400 10^3/uL Mean Platelet Volume 10.2 7.4-10.4 FL Neutrophils (%) (Auto) 78 H 42-75 % Lymphocytes (%) (Auto) 15 12-44 % Monocytes (%) (Auto) 6 0-12 % Eosinophils (%) (Auto) 0 0-10 % Basophils (%) (Auto) 0 0-10 % Neutrophils # (Auto) 8.8 H 1.8-7.8 X 10^3 Lymphocytes # (Auto) 1.8 1.0-4.0 X 10^3 Monocytes # (Auto) 0.7 0.0-1.0 X 10^3 Eosinophils # (Auto) 0.0 0.0-0.3 10^3/uL Basophils # (Auto) 0.0 0.0-0.1 10^3/uL Prothrombin Time 13.4 12.2-14.7 SEC INR Comment 1.0 0.8-1.4 Activated Partial Thromboplast Time 26 24-35 SEC Sodium Level 134 L 135-145 MMOL/L Potassium Level 3.9 3.6-5.0 MMOL/L Chloride Level 99 98-107 MMOL/L Carbon Dioxide Level 17 L 21-32 MMOL/L Anion Gap 18 H 5-14 MMOL/L Blood Urea Nitrogen 27 H 7-18 MG/DL Creatinine 2.75 H 0.60-1.30 MG/DL Estimat Glomerular Filtration Rate 25 BUN/Creatinine Ratio 10 Glucose Level 252 H 70-105 MG/DL Calcium Level 9.1 8.5-10.1 MG/DL Corrected Calcium 8.9 8.5-10.1 MG/DL Magnesium Level 2.1 1.8-2.4 MG/DL Total Bilirubin 1.2 H 0.1-1.0 MG/DL Aspartate Amino Transf (AST/SGOT) 15 5-34 U/L Alanine Aminotransferase (ALT/SGPT) 20 0-55 U/L Alkaline Phosphatase 86 40-136 U/L Total Creatine Kinase 93 30-200 U/L Creatine Kinase MB 0.8 <6.6 NG/ML Troponin I < 0.30 <0.30 NG/ML B-Type Natriuretic Peptide < 10.0 <100.0 PG/ML Total Protein 7.3 6.4-8.2 GM/DL Albumin 4.2 3.2-4.5 GM/DL Amylase Level 43 25-125 U/L Lipase 26 8-78 U/L TSH [facility] 1.14 0.35-4.94 UIU/ML Serum Alcohol < 10 <10 MG/DL My Orders Orders - JACK CORRALES DO Accucheck Stat ONCE (04/11/18 22:31) Saline Lock/Iv-Start (04/11/18 22:31) Ekg Tracing (04/11/18 22:31) Monitor-Rhythm Ecg Trace Only (04/11/18 22:31) Orthostatic Vital Signs (Adult (04/11/18 22:31) Alcohol (04/11/18 22:31) Amylase (04/11/18 22:31) BNP (04/11/18 22:31) Cbc With Automated Diff (04/11/18:) Comprehensive Metabolic Panel (04/11/18:) Creatine Kinase (04/11/18 22:31) Creatine Kinase Mb (04/11/18 22:31) Drug Screen Stat (Urine) (04/11/18:31) Lipase (04/11/18:31) Magnesium (04/11/18:) Protime With Inr (04/11/18:) Partial Thromboplastin Time (04/11/18 22:31) Thyroid Analyzer (04/11/18:) Troponin I (04/11/18:) Ua Culture If Indicated (04/11/18:31) Saline Lock/Iv-Start (04/11/18 22:31) Ondansetron Injection (Zofran Injectio (04/11/18 22:56) Ns Iv 1000 Ml (Sodium Chloride 0.9%) (04/11/18 22:56) Saline Lock/Iv-Start (04/11/18 23:09) Ns Iv 1000 Ml (Sodium Chloride 0.9%) (04/11/18 23:09) Ondansetron Injection (Zofran Injectio (04/11/18 23:15) Medications Given in ED Current Medications Medications Dose Ordered Sig/Timothy Route Start Time Stop Time Status Last Admin Dose Admin Ondansetron HCl 4 mg STK-MED ONCE .ROUTE 04/11/18 22:56 04/11/18 23:00 DC 04/11/18 23:04 4 MG Sodium Chloride 1,000 ml @ STK-MED ONCE .ROUTE 04/11/18 22:56 04/11/18 23:00 DC 04/11/18 23:04 0 MLS/HR Vital Signs/I&O 04/11/18 04/11/18 22:25 22:40 Temp 96.9 Pulse 80 74 79 92 Resp 20 B/P (MAP) 82/65 (71) 88/61 (70) 97/63 (74) 89/55 (66) Pulse Ox 100 O2 Delivery Room Air 04/12/18 00:00 Intake Total 500 ml Balance 500 ml Blood Pressure Mean: 75 FSBG Bedside Testing Finger Stick Blood Glucose: 203 Blood Glucose Action Taken: NOTIFIED. Progress Progress Note : Progress Note PT ON FACE TIME ON PHONE WITH [employer] THROUGHOUT ENTIRE ER STAY, REFUSES TO PUT PHONE DOWN FOR EXAM OR WITH INFORMATION ON TEST RESULTS, OR CHECKING HIS WELL BEING DURING ER STAY VOIDED SMALL AMOUNT AFTER 2 LITERS OF FLUIDS ORTHOSTATICS ON ARRIVAL: LAYING: BP 88/61, HR 74 SITTING: BP 97/63, HR 79 STANDING: BP 89/55, HR 92 BP UP TO > 100 SYSTOLIC WITH FLUIDS UNEVENTFUL ER STAY AND PT VOICED NO COMPLAINTS INITIALLY REFUSED ADMIT, THEN A SHORT WHILE LATER HE NOW AGREES TO ADMIT. Initial ECG Impression Date: Apr 11, 2018 Initial ECG Impression Time: 22:47 Initial ECG Rate: 78 Initial ECG Rhythm: Normal Sinus Initial ECG Comparisson: No Previous ECG Available Departure Communication (Admissions) [id number]--SPOKE WITH DR. SONI, ACCEPTS PT FOR ADMIT Impression Primary Impression: Syncope Additional Impressions: RENAL FAILURE OF UNKNOWN DURATION Severe dehydration IDDM (insulin dependent diabetes mellitus) Non-compliance Disposition: ADMITTED INPATIENT Condition: Improved Admissions Decision to Admit Reason: Admit from ER (General) Decision to Admit/Date: Apr 11, 2018 Time/Decision to Admit Time: 23:35 Departure-Patient Inst. Referrals: NO,LOCAL PHYSICIAN (PCP) Primary Care Physician JACK CORRALES DO Apr 12, 2018 08:09
[2018-04-12] MEDS: inSUlin ASPART (NovoLOG) 1 UNIT/0.01 ML (CHARGE PER UNIT) SC SCH ×3 (08:29→15:44)
[2018-04-12] MEDS ORDERED: METF750T2 PO (09:04)
[2018-04-12] MEDS ORDERED: LISI1TAB10 PO ×2 (09:04→17:41)
[2018-04-12] MEDS ORDERED: INSU100V6 SC ×2 (09:04→17:41)
[2018-04-12] MEDS ORDERED: SITA100T12 PO ×2 (09:04→17:41)
[2018-04-12] MEDS ORDERED: NAPR220T66 PO (09:05)
--- NOTE | 2018-04-12 11:48 | History & Physicial (CHS) ---
ROSA MIKE MEDICAL STUDENT 04/12/18 11:48am: HPI History of Present Illness: 47 yo white male presented to ED yesterday after fainting at work. His coworkers called the ambulance, but pt doesn't think he fully fainted. He does admit to feeling very dizzy yesterday. Pt states he believes this happened because four days ago he started taking metformin again. He has realized that metformin makes him feel lightheaded, and have N/V/D. He had discontinued the medication until his sugars were so high that he began taking it again. Pt has no primary care doctor. He states he went to [facility] for only one visit about his diabetes. Previously, he had seen Dr. Pardo in [place], [place] for primary care. Pt denies any complaints today. Source: patient Exam Limitations: no limitations Date seen by provider: Apr 12, 2018 Time Seen by Provider: 11:20 Attending Physician Anup Soni MD PCP No,Local Physician Consult Date of Admission Apr 11, 2018 at 23:35 Home Medications Home Medications Reviewed patient Home Medication Reconciliation performed by pharmacy medication reconciliations animal health technician and/or nursing. Patients Allergies have been reviewed. 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) Alcohol Use: Denies Use Recreational Drug Use: No Smoking Status: Never a Smoker 2nd Hand Smoke Exposure: No Recent Foreign Travel: No Contact w/other who traveled: No Recent Hopitalizations: No Recent Infectious Disease Expo: No Physical Abuse Screen: No Sexual Abuse: No Past Medical History DM Type 2 x1.5years Hypertension x1.5years Family Medical History Other Significan Family Hx: Father had Heart Attack in his 50's Review of Systems ([facility]) Constitutional: no symptoms reported; No dizziness Respiratory: no symptoms reported Cardiovascular: syncope Gastrointestinal: diarrhea, nausea, vomiting Genitourinary: No dysuria, No frequency Reviewed Test Results Reviewed Test Results Lab Laboratory Tests Test 04/11/18 22:31 04/11/18 22:32 04/11/18 23:46 04/12/18 01:59 Range/Units Glucometer 249 H 203 H 70-110 MG/DL White Blood Count 11.3 H 4.3-11.0 10^3/uL Red Blood Count 4.98 4.35-5.85 10^6/uL Hemoglobin 15.5 13.3-17.7 G/DL Hematocrit 43 40-54 % Mean Corpuscular Volume 86 80-99 FL Mean Corpuscular Hemoglobin 31 25-34 PG Mean Corpuscular Hemoglobin Concent 36 32-36 G/DL Red Cell Distribution Width 12.9 10.0-14.5 % Platelet Count 349 130-400 10^3/uL Mean Platelet Volume 10.2 7.4-10.4 FL Neutrophils (%) (Auto) 78 H 42-75 % Lymphocytes (%) (Auto) 15 12-44 % Monocytes (%) (Auto) 6 0-12 % Eosinophils (%) (Auto) 0 0-10 % Basophils (%) (Auto) 0 0-10 % Neutrophils # (Auto) 8.8 H 1.8-7.8 X 10^3 Lymphocytes # (Auto) 1.8 1.0-4.0 X 10^3 Monocytes # (Auto) 0.7 0.0-1.0 X 10^3 Eosinophils # (Auto) 0.0 0.0-0.3 10^3/uL Basophils # (Auto) 0.0 0.0-0.1 10^3/uL Prothrombin Time 13.4 12.2-14.7 SEC INR Comment 1.0 0.8-1.4 Activated Partial Thromboplast Time 26 24-35 SEC Sodium Level 134 L 135-145 MMOL/L Potassium Level 3.9 3.6-5.0 MMOL/L Chloride Level 99 98-107 MMOL/L Carbon Dioxide Level 17 L 21-32 MMOL/L Anion Gap 18 H 5-14 MMOL/L Blood Urea Nitrogen 27 H 7-18 MG/DL Creatinine 2.75 H 0.60-1.30 MG/DL Estimat Glomerular Filtration Rate 25 BUN/Creatinine Ratio 10 Glucose Level 252 H 70-105 MG/DL Calcium Level 9.1 8.5-10.1 MG/DL Corrected Calcium 8.9 8.5-10.1 MG/DL Magnesium Level 2.1 1.8-2.4 MG/DL Total Bilirubin 1.2 H 0.1-1.0 MG/DL Aspartate Amino Transf (AST/SGOT) 15 5-34 U/L Alanine Aminotransferase (ALT/SGPT) 20 0-55 U/L Alkaline Phosphatase 86 40-136 U/L Total Creatine Kinase 93 30-200 U/L Creatine Kinase MB 0.8 <6.6 NG/ML Troponin I < 0.30 <0.30 NG/ML B-Type Natriuretic Peptide < 10.0 <100.0 PG/ML Total Protein 7.3 6.4-8.2 GM/DL Albumin 4.2 3.2-4.5 GM/DL Amylase Level 43 25-125 U/L Lipase 26 8-78 U/L TSH [place] Testing 1.14 0.35-4.94 UIU/ML Serum Alcohol < 10 <10 MG/DL Urine Color YELLOW Urine Clarity SLIGHTLY CLOUDY Urine pH 5 5-9 Urine Specific [place] 1.020 1.016-1.022 Urine Protein 1+ H NEGATIVE Urine Glucose (UA) 4+ H NEGATIVE Urine Ketones NEGATIVE NEGATIVE Urine Nitrite NEGATIVE NEGATIVE Urine Bilirubin NEGATIVE NEGATIVE Urine Urobilinogen NORMAL NORMAL MG/DL Urine Leukocyte Esterase 1+ H NEGATIVE Urine RBC (Auto) NEGATIVE NEGATIVE Urine RBC NONE /HPF Urine WBC 2-5 /HPF Urine Squamous Epithelial Cells RARE /HPF Urine Crystals NONE /LPF Urine Bacteria TRACE /HPF Urine Casts PRESENT /LPF Urine Hyaline Casts 25-50 H /LPF Urine Mucus MODERATE H /LPF Urine Culture Indicated NO Urine Opiates Screen NEGATIVE NEGATIVE Urine Oxycodone Screen NEGATIVE NEGATIVE Urine Methadone Screen NEGATIVE NEGATIVE Urine Propoxyphene Screen NEGATIVE NEGATIVE Urine Barbiturates Screen NEGATIVE NEGATIVE Ur Tricyclic Antidepressants Screen NEGATIVE NEGATIVE Urine Phencyclidine Screen NEGATIVE NEGATIVE Urine Amphetamines Screen NEGATIVE NEGATIVE Urine Methamphetamines Screen NEGATIVE NEGATIVE Urine Benzodiazepines Screen NEGATIVE NEGATIVE Urine Cocaine Screen NEGATIVE NEGATIVE Urine Cannabinoids Screen NEGATIVE NEGATIVE Test 04/12/18 05:30 04/12/18 07:55 04/12/18 11:11 Range/Units White Blood Count 9.1 4.3-11.0 10^3/uL Red Blood Count 4.54 4.35-5.85 10^6/uL Hemoglobin 13.9 13.3-17.7 G/DL Hematocrit 40 40-54 % Mean Corpuscular Volume 87 80-99 FL Mean Corpuscular Hemoglobin 31 25-34 PG Mean Corpuscular Hemoglobin Concent 35 32-36 G/DL Red Cell Distribution Width 12.9 10.0-14.5 % Platelet Count 272 130-400 10^3/uL Mean Platelet Volume 10.3 7.4-10.4 FL Neutrophils (%) (Auto) 71 42-75 % Lymphocytes (%) (Auto) 19 12-44 % Monocytes (%) (Auto) 9 0-12 % Eosinophils (%) (Auto) 1 0-10 % Basophils (%) (Auto) 0 0-10 % Neutrophils # (Auto) 6.5 1.8-7.8 X 10^3 Lymphocytes # (Auto) 1.8 1.0-4.0 X 10^3 Monocytes # (Auto) 0.8 0.0-1.0 X 10^3 Eosinophils # (Auto) 0.1 0.0-0.3 10^3/uL Basophils # (Auto) 0.0 0.0-0.1 10^3/uL Sodium Level 137 135-145 MMOL/L Potassium Level 3.9 3.6-5.0 MMOL/L Chloride Level 105 98-107 MMOL/L Carbon Dioxide Level 20 L 21-32 MMOL/L Anion Gap 12 5-14 MMOL/L Blood Urea Nitrogen 27 H 7-18 MG/DL Creatinine 1.77 H 0.60-1.30 MG/DL Estimat Glomerular Filtration Rate 41 BUN/Creatinine Ratio 15 Glucose Level 148 H 70-105 MG/DL Calcium Level 8.5 8.5-10.1 MG/DL Corrected Calcium 8.7 8.5-10.1 MG/DL Total Bilirubin 0.8 0.1-1.0 MG/DL Aspartate Amino Transf (AST/SGOT) 12 5-34 U/L Alanine Aminotransferase (ALT/SGPT) 17 0-55 U/L Alkaline Phosphatase 74 40-136 U/L Total Protein 6.3 L 6.4-8.2 GM/DL Albumin 3.7 3.2-4.5 GM/DL Glucometer 140 H 174 H 70-110 MG/DL Physical Exam-([facility]) Physical Exam Vital Signs VS - Last 72 Hours, by Label 04/11/18 04/11/18 04/12/18 04/12/18 22:25 22:40 01:45 01:48 Temp 96.9 96.9 Pulse 80 74 77 79 92 Resp 20 17 B/P (MAP) 82/65 (71) 88/61 (70) 108/87 (66) 97/63 (74) 89/55 (66) Pulse Ox 100 100 O2 Delivery Room Air Room Air Room Air 04/12/18 04/12/18 04/12/18 04/12/18 02:23 02:44 04:15 06:00 Temp 97.0 97.9 98.3 Pulse 85 89 96 80 Resp 16 16 16 B/P (MAP) 138/84 (102) 119/69 (86) 109/58 (75) Pulse Ox 98 98 97 O2 Delivery Room Air Room Air Room Air 04/12/18 04/12/18 04/12/18 04/12/18 07:00 08:00 10:08 13:00 Temp 98.2 98.3 Pulse 79 80 72 69 Resp 18 16 B/P (MAP) 132/82 (99) 118/68 (85) Pulse Ox 96 94 O2 Delivery Room Air Room Air Capillary Refill : Less Than 3 Seconds General Appearance: no apparent distress Respiratory: lungs clear, normal breath sounds Cardiovascular: regular rate, rhythm, no gallop, no murmur Gastrointestinal: normal bowel sounds, non tender Neurologic/Psychiatric: alert, oriented x 3 Skin: normal color Assessment/Plan Assessment/Plan Admission Dx Syncope, Dehydration Admission Status: Inpatient Order (span 2 midnights) Reason for Inpatient Admission: Syncope, Dehydration Assessment & Plan 1. Syncopal Episode d/t dehydration. Continue fluids. 2. Acute Kidney Injury d/t dehydration; denies hx of kidney issues. Repeat BMP. Recommended he continue fluids and stay inpatient for one more day into to allow his kidneys to better recover. However, pt would like to discharge today. 3. Type 2 Diabetes, Uncontrolled Advised pt that he needs to establish care with a provider for his diabetes, so that he can find a different medication than metformin. Will prescribe an SGLT2 inhibitor today after getting results from the repeat BMP to ensure okay kidney function. Recommended he follow up with [facility]. Clinical Quality Measures DVT/VTE Risk/Contraindication: Risk Factor Score Per Nursin RFS Level Per Nursing on Admit: 2=Moderate ANUP SONI MD 04/12/18 5:48pm: Home Medications Allergies Coded Allergies: No Known Drug Allergies (Unverified , 04/12/18) Supervisory-Addendum Brief Supervisory Addendum Pt interviewed and examined with MS3 Rosa Mike, agree with documentation unless otherwise noted. ROSA MIKE MEDICAL STUDENT Apr 12, 2018 11:48 am ANUP SONI MD Apr 12, 2018 5:48 pm
[2018-04-12 14:37] LABS: CALCIUM 8.4 MG/DL (8.5-10.1); CREATININE SERUM 1.43 MG/DL (0.60-1.30); POTASSIUM 3.7 MMOL/L (3.6-5.0)
--- NOTE | 2018-04-12 17:36 | Discharge Summary ---
Diagnosis/Chief Complaint Date of Admission Apr 11, 2018 at 23:35 Date of Discharge Apr 12, 2018 Admission Diagnosis Admission Diagnosis Syncope vs presyncope Acute renail failure Uncontrolled DMII. Discharge Diagnosis Syncope vs presyncope- unclear if true syncope, regardless, denies chest pain, palpitations. 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 Improved today with IVF and patient requesting d/c, recheck after lunch continued to approach normal, so patient was discharged per request. No vomiting or diarrhea during stay, good oral intake. Uncontrolled DMII- unable to tolerate metformin, discussed SGLT2 inhibitor and GLP1 agonist, he would prefer to avoid injection, consider SGLT2, but his creatinine clearance is not quite at level required to start on d/c. Recommend discussing with primary provider. Chief Complaint/HPI Chief Complaint/HPI 47 yo white male presented to ED yesterday after fainting at work. His coworkers called the ambulance, but pt doesn't think he fully fainted. He does admit to feeling very dizzy yesterday. Pt states he believes this happened because four days ago he started taking metformin again. He has realized that metformin makes him feel lightheaded, and have N/V/D. He had discontinued the medication until his sugars were so high that he began taking it again. Pt has no primary care doctor. He states he went to [facility] for only one visit about his diabetes. Previously, he had seen Dr. Pardo in [place], [place] for primary care. Pt denies any complaints today. Discharge Summary-Simple/Stand Consultations Discharge Physical Examination Allergies: Coded Allergies: No Known Drug Allergies (Unverified , 04/12/18) Vitals & I&Os Vital Sign - Last 12Hours Date Time Temp Pulse Resp B/P (MAP) Pulse Ox O2 Delivery O2 Flow Rate FiO2 04/12/18 16:00 99.1 68 16 138/80 (99) 96 04/12/18 14:00 Room Air Intake and Output 04/12/18 00:00 Intake Total 1500 ml Balance 1500 ml General Appearance: Alert, No Acute Distress Respiratory: Clear to Auscultation, Normal Air Movement Cardiovascular: Regular Rate, No Murmurs Abdominal: Normal Bowel Sounds, Soft Neuro: Normal Gait Psych/Mental Status: Mental Status NL Hospital Course See final discharge diagnosis. Labs Laboratory Tests Test 04/11/18 22:31 04/11/18 22:32 04/11/18 23:46 04/12/18 01:59 Range/Units Glucometer 249 H 203 H 70-110 MG/DL White Blood Count 11.3 H 4.3-11.0 10^3/uL Red Blood Count 4.98 4.35-5.85 10^6/uL Hemoglobin 15.5 13.3-17.7 G/DL Hematocrit 43 40-54 % Mean Corpuscular Volume 86 80-99 FL Mean Corpuscular Hemoglobin 31 25-34 PG Mean Corpuscular Hemoglobin Concent 36 32-36 G/DL Red Cell Distribution Width 12.9 10.0-14.5 % Platelet Count 349 130-400 10^3/uL Mean Platelet Volume 10.2 7.4-10.4 FL Neutrophils (%) (Auto) 78 H 42-75 % Lymphocytes (%) (Auto) 15 12-44 % Monocytes (%) (Auto) 6 0-12 % Eosinophils (%) (Auto) 0 0-10 % Basophils (%) (Auto) 0 0-10 % Neutrophils # (Auto) 8.8 H 1.8-7.8 X 10^3 Lymphocytes # (Auto) 1.8 1.0-4.0 X 10^3 Monocytes # (Auto) 0.7 0.0-1.0 X 10^3 Eosinophils # (Auto) 0.0 0.0-0.3 10^3/uL Basophils # (Auto) 0.0 0.0-0.1 10^3/uL Prothrombin Time 13.4 12.2-14.7 SEC INR Comment 1.0 0.8-1.4 Activated Partial Thromboplast Time 26 24-35 SEC Sodium Level 134 L 135-145 MMOL/L Potassium Level 3.9 3.6-5.0 MMOL/L Chloride Level 99 98-107 MMOL/L Carbon Dioxide Level 17 L 21-32 MMOL/L Anion Gap 18 H 5-14 MMOL/L Blood Urea Nitrogen 27 H 7-18 MG/DL Creatinine 2.75 H 0.60-1.30 MG/DL Estimat Glomerular Filtration Rate 25 BUN/Creatinine Ratio 10 Glucose Level 252 H 70-105 MG/DL Calcium Level 9.1 8.5-10.1 MG/DL Corrected Calcium 8.9 8.5-10.1 MG/DL Magnesium Level 2.1 1.8-2.4 MG/DL Total Bilirubin 1.2 H 0.1-1.0 MG/DL Aspartate Amino Transf (AST/SGOT) 15 5-34 U/L Alanine Aminotransferase (ALT/SGPT) 20 0-55 U/L Alkaline Phosphatase 86 40-136 U/L Total Creatine Kinase 93 30-200 U/L Creatine Kinase MB 0.8 <6.6 NG/ML Troponin I < 0.30 <0.30 NG/ML B-Type Natriuretic Peptide < 10.0 <100.0 PG/ML Total Protein 7.3 6.4-8.2 GM/DL Albumin 4.2 3.2-4.5 GM/DL Amylase Level 43 25-125 U/L Lipase 26 8-78 U/L TSH [place] Testing 1.14 0.35-4.94 UIU/ML Serum Alcohol < 10 <10 MG/DL Urine Color YELLOW Urine Clarity SLIGHTLY CLOUDY Urine pH 5 5-9 Urine Specific [place] 1.020 1.016-1.022 Urine Protein 1+ H NEGATIVE Urine Glucose (UA) 4+ H NEGATIVE Urine Ketones NEGATIVE NEGATIVE Urine Nitrite NEGATIVE NEGATIVE Urine Bilirubin NEGATIVE NEGATIVE Urine Urobilinogen NORMAL NORMAL MG/DL Urine Leukocyte Esterase 1+ H NEGATIVE Urine RBC (Auto) NEGATIVE NEGATIVE Urine RBC NONE /HPF Urine WBC 2-5 /HPF Urine Squamous Epithelial Cells RARE /HPF Urine Crystals NONE /LPF Urine Bacteria TRACE /HPF Urine Casts PRESENT /LPF Urine Hyaline Casts 25-50 H /LPF Urine Mucus MODERATE H /LPF Urine Culture Indicated NO Urine Opiates Screen NEGATIVE NEGATIVE Urine Oxycodone Screen NEGATIVE NEGATIVE Urine Methadone Screen NEGATIVE NEGATIVE Urine Propoxyphene Screen NEGATIVE NEGATIVE Urine Barbiturates Screen NEGATIVE NEGATIVE Ur Tricyclic Antidepressants Screen NEGATIVE NEGATIVE Urine Phencyclidine Screen NEGATIVE NEGATIVE Urine Amphetamines Screen NEGATIVE NEGATIVE Urine Methamphetamines Screen NEGATIVE NEGATIVE Urine Benzodiazepines Screen NEGATIVE NEGATIVE Urine Cocaine Screen NEGATIVE NEGATIVE Urine Cannabinoids Screen NEGATIVE NEGATIVE Test 04/12/18 05:30 04/12/18 07:55 04/12/18 11:11 04/12/18 14:06 Range/Units White Blood Count 9.1 4.3-11.0 10^3/uL Red Blood Count 4.54 4.35-5.85 10^6/uL Hemoglobin 13.9 13.3-17.7 G/DL Hematocrit 40 40-54 % Mean Corpuscular Volume 87 80-99 FL Mean Corpuscular Hemoglobin 31 25-34 PG Mean Corpuscular Hemoglobin Concent 35 32-36 G/DL Red Cell Distribution Width 12.9 10.0-14.5 % Platelet Count 272 130-400 10^3/uL Mean Platelet Volume 10.3 7.4-10.4 FL Neutrophils (%) (Auto) 71 42-75 % Lymphocytes (%) (Auto) 19 12-44 % Monocytes (%) (Auto) 9 0-12 % Eosinophils (%) (Auto) 1 0-10 % Basophils (%) (Auto) 0 0-10 % Neutrophils # (Auto) 6.5 1.8-7.8 X 10^3 Lymphocytes # (Auto) 1.8 1.0-4.0 X 10^3 Monocytes # (Auto) 0.8 0.0-1.0 X 10^3 Eosinophils # (Auto) 0.1 0.0-0.3 10^3/uL Basophils # (Auto) 0.0 0.0-0.1 10^3/uL Sodium Level 137 136 135-145 MMOL/L Potassium Level 3.9 3.7 3.6-5.0 MMOL/L Chloride Level 105 107 98-107 MMOL/L Carbon Dioxide Level 20 L 20 L 21-32 MMOL/L Anion Gap 12 9 5-14 MMOL/L Blood Urea Nitrogen 27 H 26 H 7-18 MG/DL Creatinine 1.77 H 1.43 H 0.60-1.30 MG/DL Estimat Glomerular Filtration Rate 41 53 BUN/Creatinine Ratio 15 18 Glucose Level 148 H 167 H 70-105 MG/DL Calcium Level 8.5 8.4 L 8.5-10.1 MG/DL Corrected Calcium 8.7 8.5-10.1 MG/DL Total Bilirubin 0.8 0.1-1.0 MG/DL Aspartate Amino Transf (AST/SGOT) 12 5-34 U/L Alanine Aminotransferase (ALT/SGPT) 17 0-55 U/L Alkaline Phosphatase 74 40-136 U/L Total Protein 6.3 L 6.4-8.2 GM/DL Albumin 3.7 3.2-4.5 GM/DL Glucometer 140 H 174 H 70-110 MG/DL Test 04/12/18 15:41 Range/Units Glucometer 190 H 70-110 MG/DL Discharge Instructions to patient/family Please see electronic discharge instructions given to patient. Discharge Medications Reviewed and agree with Discharge Medication list on patient's Discharge Instruction sheet Clinical Quality Measures DVT/VTE Risk/Contraindication: Risk Factor Score Per Nursin RFS Level Per Nursing on Admit: 2=Moderate ANUP SONI MD Apr 12, 2018 5:36 pm
--- NOTE | 2018-04-12 17:43 | Discharge Instructions ---
Discharge [facility] Discharge Medications New, Converted or Re-Newed RX: Transmitted to Pharmacy Continued Medications: Insulin Glargine,Hum.rec.anlog (Lantus) 100 Unit/1 Ml Vial 12 UNITS SC DAILY, #3 ML 0 Refills (This prescription has been renewed) LAST FILLED 11-15-17 Lisinopril/Hydrochlorothiazide (Lisinopril-Hctz 20-25 mg Tab) 1 Each Tablet 1 TAB PO DAILY, #30 TAB 0 Refills (This prescription has been renewed) LAST FILLED #30 18 Sitagliptin Phosphate (Januvia) 100 Mg Tablet 100 MG PO DAILY, #30 TAB 0 Refills (This prescription has been renewed) LAST FILLED #30 18 Discontinued Medications: Metformin HCl (Metformin HCl ER) 750 Mg Tab.er.24h 750 MG PO BID WITH MEALS, TAB LAST FILLED #60 02-09-18 Naproxen Sodium (Aleve) 220 Mg Tablet 220-440 MG PO Q8H PRN for PAIN-MILD, TAB Patient Instructions Goal/Follow Up Appt: Establish care with a primary provider within a week or two after discharge. Activity & Diet Discharge Diet: ADA Diet Activity as Tolerated: Yes Orders-Post D/C & Referrals Pneu Vac Indicated: Yes ANUP SONI MD Apr 12, 2018 17:43
[2018-04-13] MEDS ORDERED: inSUlin DETERMIR 1 UNIT/0.01 ML (LEVEMIR) CHARGE PER UNIT SQ SCH (09:00)
[2018-04-13] MEDS ORDERED: lisINopril 20 MG (PRINIVIL) TABLET PO SCH (09:00)
[2018-04-13] MEDS ORDERED: HYDROCHLOROTHIAZIDE 25 MG (HCTZ) TAB PO SCH (09:00)
== END 2018-04-12 17:41 | disposition home or self-care (01) ==
LOC: EDUNIT# 22:22 → ER 22:23 → 4TH 23:35
PROVIDERS: ADMIT Family Medicine; ATTEND Family Medicine
DX: N17.9 Acute kidney failure, unspecified (principal); E86.0 Dehydration; E11.65 Type 2 diabetes mellitus with hyperglycemia; R55 Syncope and collapse; I10 Essential (primary) hypertension; Z79.4 Long term (current) use of insulin; Z79.899 Other long term (current) drug therapy; Z91.14 Patient's other noncompliance with medication regimen
CPT/HCPCS: 36415; 80048; 80053; 80306; 80320; 81000; 82150; 82550; 82553; 82962; 83690; 83735; 83880; 84443; 84484; 85025; 85610; 85730; 93005; 93041; 96361; 96374; G0378